=== PATIENT | female | born 1995 | race Two or more races ===

== ENCOUNTER 2016-11-08 17:01 | Emergency (ER) | payer SELFPAY ==
[~2016-11-08] VITALS: Ht 157.5 cm; Wt 75.7 kg
[~2016-11-08 17:01] MED LIST: CIPR500T94 PO
[2016-11-08 18:08] VITALS: BP 109/75
[2016-11-08 18:55] LABS: OBC FLU VALID
[2016-11-08] MEDS ORDERED: AMOX500T PO (19:40)
--- NOTE | 2016-11-08 19:40 | PHYS DOC ---
Past Medical History Past Medical History: No Pertinent History Past Surgical History: Appendectomy, Other Additional Past Surgical Histo: D&C Additional Information: Nonsmoker Alcohol Use: None Drug Use: None Adult General Chief Complaint Chief Complaint: SORE THROAT HPI HPI Patient is a 21 year old female who presents with sore throat for 3 days. She reports subjective fever and nasal congestion as well. She denies cough or shortness of breath. She's had infrequent nausea and vomiting. She reports that she is 11 weeks with estimated due date of 05/17/17. Her OB is Dr. Gay Crowe. She does not have a PCP. Review of Systems Review of Systems Constitutional: The ports subjective fever. Eyes: Denies change in visual acuity, redness, or eye pain. [] HENT: Denies ear pain. Reports sore throat and nasal congestion. Respiratory: Denies cough or shortness of breath. [] Cardiovascular: Denies chest pain, palpitations or edema. [] GI: Denies abdominal pain, bloody stools or diarrhea. Reports occasional nausea and vomiting. : Denies dysuria, hematuria or urinary frequency. [] Musculoskeletal: Denies back pain or joint pain. [] Integument: Denies rash or skin lesions. [] Neurologic: Denies headache, focal weakness or sensory changes. [] Endocrine: Denies polyuria or polydipsia. [] Psych: Denies anxiety or depression. [] All systems reviewed and negative unless otherwise stated in the HPI. Allergies Allergies Allergies Coded Allergies Type Severity Reaction Last Updated Verified No Known Drug Allergies 09/10/13 No Physical Exam Physical Exam Constitutional: Well developed, well nourished, no acute distress, non-toxic appearance. [] HENT: Normocephalic, atraumatic, bilateral external ears normal, oropharynx moist, no oral exudates, nose normal. Bilateral TMs without erythema or bulging. There is posterior pharyngeal erythema with mild tonsillar edema bilaterally. There is no peritonsillar abscess or uvular deviation. Bilateral nasal turbinates are swollen and erythematous. Eyes: PERRLA, EOMI, conjunctiva normal, no discharge. [] Neck: Normal range of motion, no tenderness, supple, no stridor. [] Cardiovascular: Heart rate regular rhythm, no murmur [] Lungs & Thorax: Bilateral breath sounds clear to auscultation without wheezes, rales, or rhonchi. Skin: Warm, dry, no erythema, no rash. [] Neurologic: Alert and oriented X 3, normal motor function, normal sensory function, no focal deficits noted. [] Psychologic: Affect normal, judgement normal, mood normal. [] Current Patient Data Vital Signs Vital Signs Date Time Temp Pulse Resp B/P Pulse Ox O2 Delivery O2 Flow Rate FiO2 11/08/16 18:08 99.2 86 18 99 Room Air 99.2 Lab Values Laboratory Tests Test 11/08/16 18:13 Influenza Type A Antigen Negative (NEGATIVE) Influenza Type B Antigen Negative (NEGATIVE) EKG EKG [] Radiology/Procedures Radiology/Procedures [] Course & Med Decision Making Course & Med Decision Making Pertinent Labs and Imaging studies reviewed. (See chart for details) [] Dragon Disclaimer Dragon Disclaimer This electronic medical record was generated, in whole or in part, using a voice recognition dictation system. Departure Departure Impression: Primary Impression: Pharyngitis Disposition: HOME, SELF-CARE Condition: STABLE Referrals: NO PCP (PCP) Patient Instructions: Viral and Bacterial Pharyngitis, [id number] Additional Instructions: Please complete all the prescribed antibiotics, even if you are feeling better. Please take Tylenol for fever or pain. Use according to package instructions. Please drink lots of water to stay hydrated and get plenty of rest. Please follow-up with your OB doctor within the next week. Return to emergency department if you have any new or concerning symptoms. Scripts Amoxicillin 500 Mg Tablet1 Tab PO BID #20 TAB Prov:LAUREANO MENEZES 11/08/16 Problem Qualifiers Primary Impression: Pharyngitis Pharyngitis/tonsillitis etiology: unspecified etiology Qualified Code: J02.9 - Acute pharyngitis, unspecified LAUREANO MENEZES Nov 08, 2016 19:40
[2016-11-09 07:10] LABS: NEGATIVE OBC STREP NEG; POSITIVE OBC STREP POS
== END 2016-11-08 19:52 | disposition home or self-care (01) ==
LOC: ER 17:01
DX: O99.511 Diseases of the respiratory system complicating pregnancy, first trimester (principal); J02.9 Acute pharyngitis, unspecified
CPT/HCPCS: 87070; 87804; 87880; 99284

== ENCOUNTER 2016-12-17 00:33 | Emergency (ER) | payer SELFPAY ==
[~2016-12-17] VITALS: Ht 157.5 cm; Wt 75.7 kg
[~2016-12-17 00:33] MED LIST changes: +AMOX500T PO
[2016-12-17 01:22] LABS: BILIRUBIN,URINE NEGATIVE (NEG); GLUCOSE,URINE NEGATIVE (NEG); NITRITE,URINE NEGATIVE (NEG); PROTEIN,URINE NEGATIVE (NEG-TRACE); UROBILINOGEN,URINE 0.2 mg/dL (0.2 mg/dL)
[2016-12-17] MEDS ORDERED: ACETAMINOPHEN 500 MG TABLET PO ONE (01:30)
[2016-12-17 01:32] LABS: BACTERIA,URINE MANY /HPF (0-FEW); RBC,URINE 0 /HPF (0-2); SQUAMOUS EPITHELIAL CELL,UR MANY /LPF
[2016-12-17 02:14] LABS: BASO % 0 % (0-3); EOS % 1 % (0-3); HEMATOCRIT 36.5 % (36.0-47.0); HEMOGLOBIN 12.4 g/dL (12.0-15.5); LYMPH # 2.6 x10^3/uL (1.0-4.8); LYMPH % 25 % (24-48); MEAN CORPUSCULAR HEMOGLOBIN 33 pg (25-35); MEAN CORPUSCULAR HGB CONC 34 g/dL (31-37); MEAN CORPUSCULAR VOLUME 96 fL (79-100); MONO % 6 % (0-9); NEUT % 68 % (31-73); PLATELET COUNT 256 x10^3/uL (140-400); RED CELL DISTRIBUTION WIDTH 12.9 % (11.5-14.5); WHITE BLOOD COUNT 10.3 x10^3/uL (4.0-11.0)
--- NOTE | 2016-12-17 02:23 | RAD ---
Ultrasound abdomen limited Indication: Epigastric pain and nausea. The patient is 17 weeks . The liver demonstrates a homogeneous echotexture. No mass is detected. The gallbladder is without stones or sludge. No wall thickening or pericholecystic fluid is detected. No biliary ductal dilatation is seen. The right kidney is unremarkable. The visualized pancreas is unremarkable. There is no ascites. Impression: Unremarkable right upper quadrant ultrasound. Electronically signed by: Joel Travis MD (Dec 17, 2016 02:21:51)
--- NOTE | 2016-12-17 02:33 | RAD ---
Ultrasound more than 14 weeks Indication: Pain. There is a single live fetus approximately 17 weeks 5 days gestational age. The placenta is posterior and fundal. heart rate is recorded at 155 beats per minute. No gross abnormality is detected. No abruption is seen. The ovaries are unremarkable. Biometry measurements: Biparietal diameter 3.8 centimeters, 17 weeks 4 days Head circumference 14.0 centimeters, 17 weeks 2 days Abdominal circumference 12.2 centimeters, 17 weeks 6 days Femur length 2.6 centimeters, 17 weeks 6 days Impression: Single live IUP 17 weeks 5 days gestational age. No complicating features are detected. Electronically signed by: Joel Travis MD (Dec 17, 2016 02:31:35)
[2016-12-17 02:49] VITALS: BP 109/57
[2016-12-17 03:02] LABS: ALBUMIN 3.2 g/dL (3.4-5.0); ALBUMIN/GLOBULIN RATIO 0.8 (1.0-1.7); CALCIUM 8.8 mg/dL (8.5-10.1); CREATININE 0.4 mg/dL (0.6-1.0); GFR 199.6; TOTAL BILIRUBIN 0.3 mg/dL (0.2-1.0); TOTAL PROTEIN 7.4 g/dL (6.4-8.2)
[2016-12-17 03:03] LABS: POTASSIUM 4.2 mmol/L (3.5-5.1)
[2016-12-17] MEDS ORDERED: RANI150T6 PO (03:16)
[2016-12-17] MEDS ORDERED: NITR100C62 PO (03:16)
--- NOTE | 2016-12-17 03:16 | PHYS DOC ---
Past Medical History Past Medical History: No Pertinent History Past Surgical History: Appendectomy, Other Additional Past Surgical Histo: D&C Alcohol Use: None Drug Use: None Adult General Chief Complaint Chief Complaint: ABDOMINAL PAIN IN HPI HPI Patient is a 21 year old female who presents with abdominal pain in . She is at 18 weeks by dates. Reports 1 day history of epigastric & RUQ abdominal pain as well as suprapubic pain, with nausea. Denies fevers/chills, vomiting, diarrhea, dysuria/hematuria, vaginal bleeding/ discharge. Her OB is Dr. Crowe at [facility] & she has been receiving care. She reports history of "gallbladder problems" in her prior . History of appendectomy. Review of Systems Review of Systems Constitutional: Denies fever or chills HENT: Denies nasal congestion or sore throat Respiratory: Denies cough or shortness of breath Cardiovascular: Denies chest pain or edema GI: Reports abdominal pain, nausea, denies vomiting, or diarrhea : Denies dysuria or hematuria , denies vaginal bleeding Musculoskeletal: Denies back pain or joint pain Integument: Denies rash or skin lesions Neurologic: Denies headache Current Medications Current Medications Current Medications Medications (Trade) Dose Ordered Sig/Kiersten Start Time Stop Time Status Last Admin Dose Admin Acetaminophen (Tylenol) 500 mg 1X ONCE 12/17/16 01:30 12/17/16 01:31 DC 12/17/16 02:00 500 MG Allergies Allergies Allergies Coded Allergies Type Severity Reaction Last Updated Verified No Known Drug Allergies 09/10/13 No Physical Exam Physical Exam Constitutional: Well developed, well nourished, no acute distress, non-toxic appearance. HENT: Normocephalic, atraumatic, bilateral external ears normal, oropharynx moist, nose normal. Eyes: conjunctiva normal, no discharge. Cardiovascular: RRR, no murmurs, no edema. Lungs & Thorax: LCTAB, no wheezing, no respiratory distress. Abdomen: Gravid uterus, epigastric and right upper quadrant tenderness with palpation, mild suprapubic tenderness, otherwise nontender, no rebound or guarding, no masses or pulsatile masses Skin: Warm, dry, no erythema, no rash. Back: No CVA tenderness. Extremities: No tenderness, no edema. Neurologic: Alert and oriented X 3, no focal deficits noted. Psychologic: Affect normal, judgement normal, mood normal. Current Patient Data Vital Signs Vital Signs Date Time Temp Pulse Resp B/P Pulse Ox O2 Delivery O2 Flow Rate FiO2 12/17/16 02:49 80 109/57 100 Room Air 12/17/16 00:53 98.2 18 98.2 Lab Values Laboratory Tests Test 12/16/16 23:47 12/17/16 00:38 12/17/16 02:07 POC Urine HCG, Qualitative Hcg positive (Negative) Urine Collection Type Unknown Urine Color Yellow Urine Clarity Cloudy Urine pH 6.0 Urine Specific [place] 1.020 Urine Protein Negativemg/dL (NEG-TRACE) Urine Glucose (UA) Negativemg/dL (NEG) Urine Ketones (Stick) Negativemg/dL (NEG) Urine Blood Negative (NEG) Urine Nitrite Negative (NEG) Urine Bilirubin Negative (NEG) Urine Urobilinogen Dipstick 0.2mg/dL (0.2 mg/dL) Urine Leukocyte Esterase Large (NEG) Urine RBC 0/HPF (0-2) Urine WBC 5-10/HPF (0-4) Urine Squamous Epithelial Cells Many/LPF Urine Bacteria Many/HPF (0-FEW) Urine Mucus Slight/LPF White Blood Count 10.3x10^3/uL (4.0-11.0) Red Blood Count 3.80x10^6/uL (3.50-5.40) Hemoglobin 12.4g/dL (12.0-15.5) Hematocrit 36.5% (36.0-47.0) Mean Corpuscular Volume 96fL (79-100) Mean Corpuscular Hemoglobin 33pg (25-35) Mean Corpuscular Hemoglobin Concent 34g/dL (31-37) Red Cell Distribution Width 12.9% (11.5-14.5) Platelet Count 256x10^3/uL (140-400) Neutrophils (%) (Auto) 68% (31-73) Lymphocytes (%) (Auto) 25% (24-48) Monocytes (%) (Auto) 6% (0-9) Eosinophils (%) (Auto) 1% (0-3) Basophils (%) (Auto) 0% (0-3) Neutrophils # (Auto) 7.0x10^3uL (1.8-7.7) Lymphocytes # (Auto) 2.6x10^3/uL (1.0-4.8) Monocytes # (Auto) 0.6x10^3/uL (0.0-1.1) Eosinophils # (Auto) 0.1x10^3/uL (0.0-0.7) Basophils # (Auto) 0.0x10^3/uL (0.0-0.2) Sodium Level 138mmol/L (136-145) Potassium Level 4.2mmol/L (3.5-5.1) Chloride Level 103mmol/L (98-107) Carbon Dioxide Level 23mmol/L (21-32) Anion Gap 12 (6-14) Blood Urea Nitrogen 8mg/dL (7-20) Creatinine 0.4mg/dL (0.6-1.0) L Estimated GFR (Cockcroft-Gault) 199.6 BUN/Creatinine Ratio 20 (6-20) Glucose Level 89mg/dL (70-99) Calcium Level 8.8mg/dL (8.5-10.1) Total Bilirubin 0.3mg/dL (0.2-1.0) Aspartate Amino Transferase (AST) 23U/L (15-37) Alanine Aminotransferase (ALT) 17U/L (14-59) Alkaline Phosphatase 59U/L (46-116) Total Protein 7.4g/dL (6.4-8.2) Albumin 3.2g/dL (3.4-5.0) L Albumin/Globulin Ratio 0.8 (1.0-1.7) L Lipase 130U/L (73-393) Laboratory Tests 12/17/16 02:07 Laboratory Tests 12/17/16 02:07 EKG EKG [] Radiology/Procedures Radiology/Procedures PROCEDURE: PREG MORE THAN OR EQ TO 14 WKS Ultrasound more than 14 weeks Indication: Pain. There is a single live fetus approximately 17 weeks 5 days gestational age. The placenta is posterior and fundal. heart rate is recorded at 155 beats per minute. No gross abnormality is detected. No abruption is seen. The ovaries are unremarkable. Biometry measurements: Biparietal diameter 3.8 centimeters, 17 weeks 4 days Head circumference 14.0 centimeters, 17 weeks 2 days Abdominal circumference 12.2 centimeters, 17 weeks 6 days Femur length 2.6 centimeters, 17 weeks 6 days Impression: Single live IUP 17 weeks 5 days gestational age. No complicating features are detected. Electronically signed by: Joel Castillo MD (Dec 17, 2016 02:31:35) DICTATED and SIGNED BY: JOEL CASTILLO MD DATE: 12/17/16230 PROCEDURE: ABDOMEN LTD Ultrasound abdomen limited Indication: Epigastric pain and nausea. The patient is 17 weeks . The liver demonstrates a homogeneous echotexture. No mass is detected. The gallbladder is without stones or sludge. No wall thickening or pericholecystic fluid is detected. No biliary ductal dilatation is seen. The right kidney is unremarkable. The visualized pancreas is unremarkable. There is no ascites. Impression: Unremarkable right upper quadrant ultrasound. Electronically signed by: Joel Castillo MD (Dec 17, 2016 02:21:51) DICTATED and SIGNED BY: JOEL CASTILLO MD DATE: 12/17/16220[] Course & Med Decision Making Course & Med Decision Making Pertinent Labs and Imaging studies reviewed. (See chart for details) The patient presents with abdominal pain in . Labs unremarkable, UA shows UTI. US shows no acute process in the gallbladder, IUP with heart tones. Recommend rest, PO hydration, macrobid for UTI, zantac for epigastric pain. Follow up with OB in 2-3 days. Come back for high fever, severe pain, uncontrolled vomiting, any otherwise worsening condition. Discharged home in stable condition. [] Dragon Disclaimer Dragon Disclaimer This electronic medical record was generated, in whole or in part, using a voice recognition dictation system. Departure Departure Impression: Primary Impression: Urinary tract infection Additional Impressions: Abdominal pain related conditions, unspecified, second trimester Disposition: 01 HOME, SELF-CARE Condition: STABLE Referrals: NO PCP (PCP) Patient Instructions: Abdominal Pain During , [id number], - Urinary Tract Infection Additional Instructions: You were seen in the emergency department today for abdominal pain. The ultrasound showed normal gallbladder and healthy baby. Take prescribed antibiotics for urinary tract infection. Use Zantac for upper abdominal pain. Try to avoid spicy foods, coffee, eating late at night. Follow-up with OB in 2- 3 days if symptoms continue. Return to the emergency department for high fever, severe pain, uncontrolled vomiting, any otherwise worsening condition. Scripts Ranitidine Hcl (Zantac)150 Mg [id number] Mg PO DAILY PRN GI SYMPTOMS #30 TAB Prov:MIKI ARIAS MD 12/17/16 Nitrofurantoin Monohyd/M-Cryst (Macrobid 100 Mg Capsule)100 Mg Capsule1 Cap PO BID #14 CAP Prov:MIKI ARIAS MD 12/17/16 Problem Qualifiers MIKI ARIAS MD Dec 17, 2016 03:16
== END 2016-12-17 03:29 | disposition home or self-care (01) ==
LOC: ER 00:33
DX: O23.42 Unspecified infection of urinary tract in pregnancy, second trimester (principal); O26.892 Other specified pregnancy related conditions, second trimester; R10.11 Right upper quadrant pain; R10.13 Epigastric pain; R11.0 Nausea; Z90.49 Acquired absence of other specified parts of digestive tract; Z3A.17 17 weeks gestation of pregnancy
CPT/HCPCS: 36415; 76705; 76805; 80053; 81001; 81025; 83690; 85027; 87086; 99285-25

== ENCOUNTER 2016-12-27 14:49 | Emergency (ER) | payer SELFPAY ==
[~2016-12-27] VITALS: Ht 157.5 cm; Wt 75.7 kg
[~2016-12-27 14:49] MED LIST changes: +NITR100C62 PO; +RANI150T6 PO
--- NOTE | 2016-12-27 15:24 | PHYS DOC ---
Past Medical History Past Medical History: No Pertinent History Past Surgical History: Appendectomy, Other Additional Past Surgical Histo: D&C Alcohol Use: None Drug Use: None Adult General Chief Complaint Chief Complaint: SYNCOPE HPI HPI Patient is a pleasant 21-year-old 011 at approximate 18 weeks by LMP with history of near-syncope while walking in a store with her mom. She denied any chest pain abdominal pain vaginal bleeding or discharge prior to the event she felt a little bit diaphoretic and weak which began to hyperventilate filling her vision, clouded and tunnellike in nature. She sat down really with some results of her symptoms but she still feels very fatigued and anxious. She again denies any shortness of breath or chest pain. Denies any focal neurologic deficits like tingling to her hands feet or face. Her vision is back to normal she has no visual acuity loss no headache no trauma. He still feels the baby moving without issue patient is presently on antimicrobials for UTI. Review of Systems Review of Systems Constitutional: Denies fever or chills [] Eyes: Denies change in visual acuity, redness, or eye pain [] HENT: Denies nasal congestion or sore throat [] Respiratory: Denies cough or shortness of breath [] Cardiovascular: No additional information not addressed in HPI [] GI: Denies abdominal pain, nausea, vomiting, bloody stools or diarrhea [] : Denies dysuria or hematuria [] Musculoskeletal: Denies back pain or joint pain [] Integument: Denies rash or skin lesions [] Neurologic: Denies headache, focal weakness or sensory changes [] Endocrine: Denies polyuria or polydipsia [] Current Medications Current Medications Current Medications Medications (Trade) Dose Ordered Sig/Kiersten Start Time Stop Time Status Last Admin Dose Admin Ondansetron HCl (Zofran) 4 mg 1X ONCE 12/27/16 15:30 12/27/16 15:31 DC Sodium Chloride (Iv Sodium Chloride 0.9% 500ml Bag) 500 ml @ 500 mls/hr Q1H 12/27/16 15:30 12/27/16 15:37 500 MLS/HR Sodium Chloride 10 ml 10 ml QSHIFT PRN 12/27/16 15:30 Allergies Allergies Allergies Coded Allergies Type Severity Reaction Last Updated Verified No Known Drug Allergies 09/10/13 No Physical Exam Physical Exam Constitutional: Well developed, well nourished, no acute distress, non-toxic appearance. [] HENT: Normocephalic, atraumatic, bilateral external ears normal, oropharynx moist, no oral exudates, nose normal. [] Eyes: PERRLA, EOMI, conjunctiva normal, no discharge. [] Neck: Normal range of motion, no tenderness, supple, no stridor. [] Cardiovascular:Heart rate regular rhythm, no murmur [] Lungs & Thorax: Bilateral breath sounds clear to auscultation [] Abdomen: Bowel sounds normal soft nontender gravid uterus at approximately 4-5 cm below the umbilicus. Skin: Warm, dry, no erythema, no rash. [] Back: No tenderness, no CVA tenderness. [] Extremities: No tenderness, no cyanosis, no clubbing, ROM intact, no edema. [] Neurologic: Alert and oriented X 3, normal motor function, normal sensory function, no focal deficits noted. [] Patient has normal sensation Psychologic: Affect normal, judgement normal, mood normal. [] Pelvic exam deferred. Current Patient Data Vital Signs Vital Signs Date Time Temp Pulse Resp B/P Pulse Ox O2 Delivery O2 Flow Rate FiO2 12/27/16 15:00 98.0 85 20 100/55 96 Room Air 98.0 Lab Values Laboratory Tests Test 12/27/16 15:11 12/27/16 15:23 Urine Collection Type Unknown Urine Color Yellow Urine Clarity Cloudy Urine pH 6.5 Urine Specific [place] 1.025 Urine Protein Negativemg/dL (NEG-TRACE) Urine Glucose (UA) Negativemg/dL (NEG) Urine Ketones (Stick) Negativemg/dL (NEG) Urine Blood Negative (NEG) Urine Nitrite Negative (NEG) Urine Bilirubin Negative (NEG) Urine Urobilinogen Dipstick 0.2mg/dL (0.2 mg/dL) Urine Leukocyte Esterase Large (NEG) Urine RBC 0/HPF (0-2) Urine WBC 5-10/HPF (0-4) Urine Squamous Epithelial Cells Many/LPF Urine Bacteria Many/HPF (0-FEW) Urine Mucus Marked/LPF Urine Test Positive (NEG) White Blood Count 9.9x10^3/uL (4.0-11.0) Red Blood Count 3.64x10^6/uL (3.50-5.40) Hemoglobin 12.0g/dL (12.0-15.5) Hematocrit 33.9% (36.0-47.0) L Mean Corpuscular Volume 93fL (79-100) Mean Corpuscular Hemoglobin 33pg (25-35) Mean Corpuscular Hemoglobin Concent 35g/dL (31-37) Red Cell Distribution Width 12.9% (11.5-14.5) Platelet Count 258x10^3/uL (140-400) Neutrophils (%) (Auto) 75% (31-73) H Lymphocytes (%) (Auto) 18% (24-48) L Monocytes (%) (Auto) 6% (0-9) Eosinophils (%) (Auto) 1% (0-3) Basophils (%) (Auto) 1% (0-3) Neutrophils # (Auto) 7.4x10^3uL (1.8-7.7) Lymphocytes # (Auto) 1.7x10^3/uL (1.0-4.8) Monocytes # (Auto) 0.5x10^3/uL (0.0-1.1) Eosinophils # (Auto) 0.1x10^3/uL (0.0-0.7) Basophils # (Auto) 0.1x10^3/uL (0.0-0.2) Sodium Level 134mmol/L (136-145) L Potassium Level 3.7mmol/L (3.5-5.1) Chloride Level 104mmol/L (98-107) Carbon Dioxide Level 22mmol/L (21-32) Anion Gap 8 (6-14) Blood Urea Nitrogen 9mg/dL (7-20) Creatinine 0.5mg/dL (0.6-1.0) L Estimated GFR (Cockcroft-Gault) 154.3 BUN/Creatinine Ratio 18 (6-20) Glucose Level 116mg/dL (70-99) H Calcium Level 8.6mg/dL (8.5-10.1) Total Bilirubin 0.2mg/dL (0.2-1.0) Aspartate Amino Transferase (AST) 14U/L (15-37) L Alanine Aminotransferase (ALT) 15U/L (14-59) Alkaline Phosphatase 56U/L (46-116) Total Protein 7.0g/dL (6.4-8.2) Albumin 2.7g/dL (3.4-5.0) L Albumin/Globulin Ratio 0.6 (1.0-1.7) L Laboratory Tests 12/27/16 15:23 Laboratory Tests 12/27/16 15:23 EKG EKG EKG time 1524 demonstrates heart rate 88 normal QRS, TX intervals normal QTC is similar T-wave changes no S1 every 3 T3. Very normal looking EKG. Date on EKG is 12/27/2016 [] Radiology/Procedures Radiology/Procedures [] Course & Med Decision Making Course & Med Decision Making Pertinent Labs and Imaging studies reviewed. (See chart for details) [Patient presented initially with near syncope. Her confounding factors of the fact she is probably volume depleted and she is approximately 18 weeks. She knew the symptoms are coming on she sat down to react appropriately she denied any chest pain or shortness of breath at this time. I do not believe pulmonary embolism is the cause for symptoms. Patient did not having nausea and vomiting no focal neurologic deficits and did not lose consciousness and had no vision changes. She is Bill back at baseline she was given some fluids and antiemetics here in the emergency department heart tones at bedside were recorded at 148 she still detect movement. Abdomen is soft nontender with normal active bowel sounds are normal gravid uterus] she tolerated by mouth fluid challenge here in the emergency. Her CBC was normal with exception of sodium which is 134. Glucose is mildly elevated at 116. Her BUN/creatinine within normal limits for age. Patient be sent home with Zofran fluid hydration instructions and follow-up with her primary care doctor. Did on her urinalysis that she demonstrated to some red blood cells bacteria but also significant contamination with epithelial cells. She is on antimicrobials. 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 Dragon Disclaimer Dragon Disclaimer This electronic medical record was generated, in whole or in part, using a voice recognition dictation system. Departure Departure Impression: Primary Impression: Near syncope Disposition: 01 HOME, SELF-CARE Condition: IMPROVED Referrals: NO PCP (PCP) Patient Instructions: Dehydration, Adult, Near-Syncope Scripts Ondansetron (Zofran Odt)4 Mg Tab.rapdis1 Tab SL Q8HRS #15 TAB Ref 0 Prov:MIGEL DONAHUE MD 12/27/16 MIGEL DONAHUE MD December 27, 2016 15:24
[2016-12-27] MEDS ORDERED: ONDANSETRON PF 4 MG/2 ML VIAL. IV ONE (15:30)
[2016-12-27] MEDS ORDERED: IV NORMAL SALINE 500ML BAG 500 ML IV SCH (15:30)
[2016-12-27] MEDS ORDERED: 0.9 % SODIUM CHLORIDE 10 ML DISP.SYRIN. IV PRN (15:30)
[2016-12-27 15:35] LABS: BASO # 0.1 x10^3/uL (0.0-0.2); BASO % 1 % (0-3); EOS % 1 % (0-3); HEMATOCRIT 33.9 % (36.0-47.0); LYMPH # 1.7 x10^3/uL (1.0-4.8); LYMPH % 18 % (24-48); MEAN CORPUSCULAR HEMOGLOBIN 33 pg (25-35); MEAN CORPUSCULAR HGB CONC 35 g/dL (31-37); MEAN CORPUSCULAR VOLUME 93 fL (79-100); MONO % 6 % (0-9); NEUT % 75 % (31-73); PLATELET COUNT 258 x10^3/uL (140-400); RED BLOOD COUNT 3.64 x10^6/uL (3.50-5.40); RED CELL DISTRIBUTION WIDTH 12.9 % (11.5-14.5); WHITE BLOOD COUNT 9.9 x10^3/uL (4.0-11.0)
[2016-12-27 15:36] LABS: BILIRUBIN,URINE NEGATIVE (NEG); GLUCOSE,URINE NEGATIVE (NEG); NITRITE,URINE NEGATIVE (NEG); PH,URINE 6.5; PROTEIN,URINE NEGATIVE (NEG-TRACE); UROBILINOGEN,URINE 0.2 mg/dL (0.2 mg/dL)
[2016-12-27 15:41] LABS: NEG OBC UR NEG; POS OBC UR POS
[2016-12-27 15:45] LABS: CALCIUM 8.6 mg/dL (8.5-10.1); CREATININE 0.5 mg/dL (0.6-1.0); GFR 154.3; POTASSIUM 3.7 mmol/L (3.5-5.1)
[2016-12-27 15:51] LABS: ALBUMIN 2.7 g/dL (3.4-5.0); ALBUMIN/GLOBULIN RATIO 0.6 (1.0-1.7); TOTAL BILIRUBIN 0.2 mg/dL (0.2-1.0)
--- NOTE | 2016-12-27 15:51 | EKG ---
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
[2016-12-27 15:53] LABS: BACTERIA,URINE MANY /HPF (0-FEW); RBC,URINE 0 /HPF (0-2); SQUAMOUS EPITHELIAL CELL,UR MANY /LPF
[2016-12-27] MEDS ORDERED: ONDA4TAB10 SL (16:33)
[2016-12-27 17:00] VITALS: BP 104/57
== END 2016-12-27 17:22 | disposition home or self-care (01) ==
LOC: ER 14:49
DX: O26.892 Other specified pregnancy related conditions, second trimester (principal); R55 Syncope and collapse; R06.4 Hyperventilation; Z90.49 Acquired absence of other specified parts of digestive tract; Z3A.18 18 weeks gestation of pregnancy
CPT/HCPCS: 36415; 80053; 81001; 81025; 85027; 87086; 93005; 96360; 96361; 99285; J7040

== ENCOUNTER 2018-01-03 13:47 | Emergency (ER) | payer SELFPAY ==
[2018-01-03 14:08] LABS: URINE HCG POC HCG NEGATIVE (Negative)
[2018-01-03 14:08] LABS: BILIRUBIN,URINE NEGATIVE (NEG); CLARITY,URINE CLEAR; COLOR,URINE YELLOW; GLUCOSE,URINE NEGATIVE (NEG); NITRITE,URINE NEGATIVE (NEG); PH,URINE 5.5; PROTEIN,URINE NEGATIVE (NEG-TRACE); UROBILINOGEN,URINE 0.2 mg/dL (0.2 mg/dL)
[2018-01-03] MEDS: traMADol 50 MG TABLET PO (14:08)
[2018-01-03] MEDS: predniSONE 20 MG TABLET PO (14:08)
[2018-01-03 14:21] LABS: BACTERIA,URINE FEW /HPF (0-FEW); RBC,URINE 0 /HPF (0-2); SQUAMOUS EPITHELIAL CELL,UR MANY /LPF
[2018-01-03] MEDS: diphenhydrAMINE HCL 25 MG CAPSULE PO (14:43)
[2018-01-03] MEDS: KETOROLAC 60 MG/2 ML INJ. IM (14:43)
== END 2018-01-03 15:00 | disposition home or self-care (01) ==
LOC: ER 15:00
DX: J06.9 Acute upper respiratory infection, unspecified (principal); H92.09 Otalgia, unspecified ear
CPT/HCPCS: 81001; 81025; 96372; 99283; J1885; J7512; Q0163

== ENCOUNTER 2018-02-08 12:37 | Emergency (ER) | payer SELFPAY ==
[2018-02-08] MEDS: LIDOCAINE WITH 8.4% SOD BICARB 3 ML DISP.SYRIN. INJ (14:30)
[2018-02-08] MEDS: DIPHTH,PERTUSS(ACELL),TET TOX 0.5 ML DISP.SYRIN. VAX IM (14:39)
== END 2018-02-08 15:08 | disposition home or self-care (01) ==
LOC: ER 15:08
DX: S00.551A Superficial foreign body of lip, initial encounter (principal); X58.XXXA Exposure to other specified factors, initial encounter; Y93.89 Activity, other specified; Y92.89 Other specified places as the place of occurrence of the external cause; Y99.8 Other external cause status
CPT/HCPCS: 10120; 90471; 90715; 99284

== ENCOUNTER 2018-06-20 16:45 | Emergency (ER) | payer SELFPAY ==
[~2018-06-20] VITALS: Ht 157.5 cm; Wt 81.2 kg
[~2018-06-20 16:45] MED LIST changes: +GUAI600T47 PO; +METH4TAB2 PO; +ONDA4TAB10 SL; +RANI150T21 PO; -RANI150T6 PO; +TRAM50TA PO
[2018-06-20 17:28] LABS: BILIRUBIN,URINE NEGATIVE (NEG); CLARITY,URINE CLEAR; COLOR,URINE YELLOW; NITRITE,URINE NEGATIVE (NEG); PROTEIN,URINE NEGATIVE (NEG-TRACE); UROBILINOGEN,URINE 0.2 mg/dL (0.2 mg/dL)
--- NOTE | 2018-06-20 17:29 | PHYS DOC ---
Past Medical History Past Medical History: No Pertinent History Past Surgical History: Appendectomy, Other Additional Past Surgical Histo: D&C Alcohol Use: Occasionally Drug Use: Marijuana Adult General Chief Complaint Chief Complaint: ABDOMINAL PAIN HPI HPI 22-year-old female presents for evaluation of epigastric abdominal pain after eating spicy food. She reports symptoms started approximately 1 hour prior to arrival. She states at time of examination the symptoms are getting better. She reports some nausea as well. States has had similar episodes of pain like this over the last several months. Last menstrual cycle 05/12/18. She denies fevers or vomiting. Review of Systems Review of Systems Constitutional: Denies fever or chills [] Eyes: Denies change in visual acuity, redness, or eye pain [] HENT: Denies nasal congestion or sore throat [] Respiratory: Denies cough or shortness of breath [] Cardiovascular: No additional information not addressed in HPI [] : Denies dysuria or hematuria [] Musculoskeletal: Denies back pain or joint pain [] Integument: Denies rash or skin lesions [] Neurologic: Denies headache, focal weakness or sensory changes [] All other systems were reviewed and found to be within normal limits, except as documented in this note. Current Medications Current Medications Current Medications Medications (Trade) Dose Ordered Sig/Kiersten Start Time Stop Time Status Last Admin Dose Admin Dicyclomine HCl (Bentyl) 10 mg 1X ONCE 06/20/18 17:30 06/20/18 17:31 DC 06/20/18 18:14 10 MG Allergies Allergies Allergies Coded Allergies Type Severity Reaction Last Updated Verified No Known Drug Allergies 09/10/13 No Physical Exam Physical Exam Constitutional: Well developed, well nourished, no acute distress, non-toxic appearance. [] Cardiovascular:Heart rate regular rhythm, no murmur [] Lungs & Thorax: Bilateral breath sounds clear to auscultation [] Abdomen: Bowel sounds normal, soft, SLIGHT TTP EPIGASTRIC ABD, no masses, no pulsatile masses. [] Skin: Warm, dry, no erythema, no rash. [] Extremities: No tenderness, no cyanosis, no clubbing, ROM intact, no edema. [] Neurologic: Alert and oriented X 3, normal motor function, normal sensory function, no focal deficits noted. [] Psychologic: Affect normal, judgement normal, mood normal. [] Current Patient Data Vital Signs Vital Signs Date Time Temp Pulse Resp B/P (MAP) Pulse Ox O2 Delivery O2 Flow Rate FiO2 06/20/18 18:45 77 18 113/80 (91) 98 Room Air 06/20/18 16:58 98.1 98.1 Lab Values Laboratory Tests Test 06/20/18 17:08 06/20/18 17:15 06/20/18 17:25 POC Urine HCG, Qualitative Hcg negative (Negative) Urine Collection Type Unknown Urine Color Yellow Urine Clarity Clear Urine pH 8.0 Urine Specific [place] 1.025 Urine Protein Negative mg/dL (NEG-TRACE) Urine Glucose (UA) Negative mg/dL (NEG) Urine Ketones (Stick) Negative mg/dL (NEG) Urine Blood Negative (NEG) Urine Nitrite Negative (NEG) Urine Bilirubin Negative (NEG) Urine Urobilinogen Dipstick 0.2 mg/dL (0.2 mg/dL) Urine Leukocyte Esterase Negative (NEG) Urine RBC Occ /HPF (0-2) Urine WBC Occ /HPF (0-4) Urine Squamous Epithelial Cells Mod /LPF Urine Amorphous Sediment Present /HPF Urine Bacteria 0 /HPF (0-FEW) Urine Mucus Slight /LPF White Blood Count 7.5 x10^3/uL (4.0-11.0) Red Blood Count 4.11 x10^6/uL (3.50-5.40) Hemoglobin 13.6 g/dL (12.0-15.5) Hematocrit 38.6 % (36.0-47.0) Mean Corpuscular Volume 94 fL (79-100) Mean Corpuscular Hemoglobin 33 pg (25-35) Mean Corpuscular Hemoglobin Concent 35 g/dL (31-37) Red Cell Distribution Width 12.6 % (11.5-14.5) Platelet Count 281 x10^3/uL (140-400) Neutrophils (%) (Auto) 57 % (31-73) Lymphocytes (%) (Auto) 34 % (24-48) Monocytes (%) (Auto) 6 % (0-9) Eosinophils (%) (Auto) 2 % (0-3) Basophils (%) (Auto) 1 % (0-3) Neutrophils # (Auto) 4.3 x10^3uL (1.8-7.7) Lymphocytes # (Auto) 2.6 x10^3/uL (1.0-4.8) Monocytes # (Auto) 0.5 x10^3/uL (0.0-1.1) Eosinophils # (Auto) 0.1 x10^3/uL (0.0-0.7) Basophils # (Auto) 0.1 x10^3/uL (0.0-0.2) Sodium Level 141 mmol/L (136-145) Potassium Level 3.5 mmol/L (3.5-5.1) Chloride Level 105 mmol/L (98-107) Carbon Dioxide Level 26 mmol/L (21-32) Anion Gap 10 (6-14) Blood Urea Nitrogen 13 mg/dL (7-20) Creatinine 0.6 mg/dL (0.6-1.0) Estimated GFR (Cockcroft-Gault) 123.9 BUN/Creatinine Ratio 22 (6-20) H Glucose Level 104 mg/dL (70-99) H Calcium Level 8.6 mg/dL (8.5-10.1) Total Bilirubin 0.2 mg/dL (0.2-1.0) Aspartate Amino Transferase (AST) 20 U/L (15-37) Alanine Aminotransferase (ALT) 27 U/L (14-59) Alkaline Phosphatase 81 U/L (46-116) Total Protein 7.5 g/dL (6.4-8.2) Albumin 3.6 g/dL (3.4-5.0) Albumin/Globulin Ratio 0.9 (1.0-1.7) L Lipase 160 U/L (73-393) Laboratory Tests 06/20/18 17:25 Laboratory Tests 06/20/18 17:25 EKG EKG [] Radiology/Procedures Radiology/Procedures [PROCEDURE: ABDOMEN LTD Examination: Ultrasound abdomen limited HISTORY: History of upper abdominal pain, nausea COMPARISON: 12/17/2016 FINDINGS: The pancreas is not well-visualized due to bowel gas. The liver measures 15.6 cm. The right kidney measures 12.6 cm in length. Multiple echogenicities identified within the gallbladder likely tiny gallstones or sludge. The gallbladder wall thickness measures 3.6 mm. No ultrasonographic evidence of Seo's sign. The common bile duct measures 3.3 mm in diameter. IMPRESSION: 1. Cholelithiasis or sludge with mild thickened appearance of the gallbladder wall. Acute cholecystitis is not completely excluded. Correlate clinically. Electronically signed by: Keith Hillman MD (06/20/2018 6:24 PM) [facility] ] Course & Med Decision Making Course & Med Decision Making Pertinent Labs and Imaging studies reviewed. (See chart for details) [Vital signs stable, patient is afebrile and nontoxic in appearance. Labs are within normal limits. Ultrasound abdomen limited indicates cholelithiasis. Patient is referred for outpatient follow-up with general surgery. Discussed findings with patient, discussed dietary changes to limit abdominal pain. Patient is given prescription for Bentyl and follow-up information for general surgery. Stable for discharge home. Strict return precautions discussed.] Dragon Disclaimer Dragon Disclaimer This electronic medical record was generated, in whole or in part, using a voice recognition dictation system. Departure Departure Impression: Primary Impression: Cholelithiasis Disposition: 01 HOME, SELF-CARE Condition: STABLE Referrals: NO PCP (PCP) DELFINO PAUL MD Scripts Dicyclomine Hcl (DICYCLOMINE HCL) 20 Mg Tablet 1 TAB PO TID PRN for PAIN, #30 TAB 1 Refill Prov: SUNG HELTON APRN 06/20/18 SUNG HELTON APRN Jun 20, 2018 17:29
[2018-06-20] MEDS ORDERED: DICYCLOMINE 20 MG/2 ML AMPUL. IM ONE (17:30)
[2018-06-20 17:36] LABS: AMORPHOUS SEDIMENT,UR PRESENT /HPF; BACTERIA,URINE 0 /HPF (0-FEW); RBC,URINE OCC /HPF (0-2); SQUAMOUS EPITHELIAL CELL,UR MOD /LPF; WBC,URINE OCC /HPF (0-4)
[2018-06-20 17:39] LABS: BASO # 0.1 x10^3/uL (0.0-0.2); BASO % 1 % (0-3); EOS # 0.1 x10^3/uL (0.0-0.7); EOS % 2 % (0-3); HEMATOCRIT 38.6 % (36.0-47.0); HEMOGLOBIN 13.6 g/dL (12.0-15.5); LYMPH # 2.6 x10^3/uL (1.0-4.8); LYMPH % 34 % (24-48); MEAN CORPUSCULAR HEMOGLOBIN 33 pg (25-35); MEAN CORPUSCULAR HGB CONC 35 g/dL (31-37); MEAN CORPUSCULAR VOLUME 94 fL (79-100); MONO # 0.5 x10^3/uL (0.0-1.1); MONO % 6 % (0-9); NEUT # 4.3 x10^3uL (1.8-7.7); NEUT % 57 % (31-73); PLATELET COUNT 281 x10^3/uL (140-400); RED BLOOD COUNT 4.11 x10^6/uL (3.50-5.40); RED CELL DISTRIBUTION WIDTH 12.6 % (11.5-14.5); WHITE BLOOD COUNT 7.5 x10^3/uL (4.0-11.0)
[2018-06-20 17:56] LABS: CALCIUM 8.6 mg/dL (8.5-10.1); CREATININE 0.6 mg/dL (0.6-1.0); GFR 123.9; POTASSIUM 3.5 mmol/L (3.5-5.1)
[2018-06-20 18:00] LABS: ALBUMIN 3.6 g/dL (3.4-5.0); ALBUMIN/GLOBULIN RATIO 0.9 (1.0-1.7); TOTAL BILIRUBIN 0.2 mg/dL (0.2-1.0); TOTAL PROTEIN 7.5 g/dL (6.4-8.2)
--- NOTE | 2018-06-20 18:27 | RAD ---
Examination: Ultrasound abdomen limited HISTORY: History of upper abdominal pain, nausea COMPARISON: 12/17/2016 FINDINGS: The pancreas is not well-visualized due to bowel gas. The liver measures 15.6 cm. The right kidney measures 12.6 cm in length. Multiple echogenicities identified within the gallbladder likely tiny gallstones or sludge. The gallbladder wall thickness measures 3.6 mm. No ultrasonographic evidence of Seo's sign. The common bile duct measures 3.3 mm in diameter. IMPRESSION: 1. Cholelithiasis or sludge with mild thickened appearance of the gallbladder wall. Acute cholecystitis is not completely excluded. Correlate clinically. Electronically signed by: Keith iHllman MD (06/20/2018 6:24 PM) [facility]
[2018-06-20] MEDS ORDERED: DICY20TA3 PO (18:42)
[2018-06-20 18:45] VITALS: BP 113/80
== END 2018-06-20 18:45 | disposition home or self-care (01) ==
LOC: ER 16:45
DX: K80.20 Calculus of gallbladder without cholecystitis without obstruction (principal); Z90.89 Acquired absence of other organs
CPT/HCPCS: 36415; 76705; 80053; 81001; 81025; 83690; 85025; 96372; 99285; J0500

== ENCOUNTER 2018-07-11 23:36 | Emergency (ER) | payer SELFPAY ==
[~2018-07-11] VITALS: Ht 157.5 cm; Wt 77.1 kg
[~2018-07-11 23:36] MED LIST changes: +DICY20TA3 PO
[2018-07-12] MEDS ORDERED: ONDANSETRON ODT 4 MG TAB.RAPDIS. PO ONE (00:45)
[2018-07-12] MEDS ORDERED: LIDO:MAALOX 1:1 20 ML SINGLE DOSE. SWSW ONE (00:45)
[2018-07-12] MEDS ORDERED: fentaNYL PF VIAL 100 MCG/2 ML VIAL ONE (01:19)
[2018-07-12 01:21] LABS: BASO # 0.1 x10^3/uL (0.0-0.2); BASO % 1 % (0-3); EOS # 0.1 x10^3/uL (0.0-0.7); EOS % 2 % (0-3); HEMATOCRIT 40.9 % (36.0-47.0); LYMPH # 3.5 x10^3/uL (1.0-4.8); LYMPH % 39 % (24-48); MEAN CORPUSCULAR HEMOGLOBIN 33 pg (25-35); MEAN CORPUSCULAR HGB CONC 34 g/dL (31-37); MEAN CORPUSCULAR VOLUME 95 fL (79-100); MONO # 0.4 x10^3/uL (0.0-1.1); MONO % 5 % (0-9); NEUT % 55 % (31-73); PLATELET COUNT 291 x10^3/uL (140-400); RED CELL DISTRIBUTION WIDTH 12.4 % (11.5-14.5); WHITE BLOOD COUNT 9.1 x10^3/uL (4.0-11.0)
[2018-07-12 01:29] LABS: CALCIUM 9.3 mg/dL (8.5-10.1); CREATININE 0.6 mg/dL (0.6-1.0); GFR 123.9; POTASSIUM 3.8 mmol/L (3.5-5.1)
[2018-07-12] MEDS ORDERED: ONDANSETRON PF 4 MG/2 ML VIAL. IV ONE (01:30)
[2018-07-12] MEDS ORDERED: fentaNYL PF VIAL 100 MCG/2 ML VIAL IV ONE (01:30)
[2018-07-12 01:34] LABS: ALBUMIN 4.2 g/dL (3.4-5.0); TOTAL BILIRUBIN 0.4 mg/dL (0.2-1.0); TOTAL PROTEIN 8.3 g/dL (6.4-8.2)
[2018-07-12] MEDS ORDERED: MORPHINE SULFATE 4 MG/ML VIAL. IV ONE (01:45)
[2018-07-12 02:00] VITALS: BP 106/53
--- NOTE | 2018-07-12 02:00 | RAD ---
INDICATION : abd pain/nausea x 24 hrs COMPARISON: June 20, 2018 TECHNIQUE: Multiple ultrasound images obtained through the abdomen in grayscale and color. FINDINGS: Liver: Echotexture within normal limits in visualized portions of liver. Gallbladder: Gallstones are visualized. Gallbladder somewhat distended at time of exam. 111 x 32 mm. Portion of gallbladder wall measures up to about 4 mm. IVC: Partially distended at level of liver. Common Bile Duct: 4-5 mm Pancreas: Poorly seen but no fluid collection adjacent to the partially seen portion. Right Kidney: No hydronephrosis. IMPRESSION: 1. Multiple gallstones are visualized with distention of the gallbladder. The patient has pain within the region. Given the presence of gallstones and pain in the area gallbladder disease such as cholecystitis is not excluded on this exam and if further clarification is desired a follow-up nuclear hepatobiliary scan could further evaluate. Electronically signed by: Hari Almanzar MD (07/12/2018 1:55 AM) [facility]
[2018-07-12] MEDS ORDERED: HYDR-3135 PO (03:03)
[2018-07-12] MEDS ORDERED: ONDA4TAB7 PO (03:03)
--- NOTE | 2018-07-12 03:14 | PHYS DOC ---
Past Medical History Past Medical History: Gallstones, Kidney Infection Past Surgical History: Appendectomy Additional Past Surgical Histo: d & C Alcohol Use: None Drug Use: None Adult General Chief Complaint Chief Complaint: ABDOMINAL PAIN HPI HPI Patient is a 22 year old female with history of biliary colic presents with intermittent right upper quadrant pain radiating to right scapula of the past to 3 months. Symptom this evening began after eating spaghetti. Patient reports nausea without vomiting. No fever chills, sweats. No midabdominal pain. No hematemesis, coffee-ground emesis, melena or hematochezia. No other symptoms or complaints. Pain is similar in nature quality and character as previous episodes. Patient was evaluated in this emergency department approximately one month ago for the same. She was diagnosed with biliary colic and was instructed to follow-up general surgery.[] Review of Systems Review of Systems ROS as per HPI All other systems were reviewed and found to be within normal limits, except as documented in this note. Current Medications Current Medications Current Medications Medications (Trade) Dose Ordered Sig/Kiersten Start Time Stop Time Status Last Admin Dose Admin Fentanyl Citrate (Fentanyl 2ml Vial) 100 mcg STK-MED ONCE 07/12/18 01:19 07/12/18 01:20 DC Morphine Sulfate (Morphine Sulfate) 4 mg 1X ONCE 07/12/18 01:45 07/12/18 01:50 DC 07/12/18 01:43 4 MG Multi-Ingredient Mouthwash/Gargle (Gi Cocktail) 20 ml 1X ONCE 07/12/18 00:45 07/12/18 00:46 DC 07/12/18 00:47 20 ML Ondansetron HCl (Zofran Odt) 4 mg 1X ONCE 07/12/18 00:45 07/12/18 00:46 DC 07/12/18 00:47 4 MG Ondansetron HCl (Zofran) 4 mg 1X ONCE 07/12/18 01:30 07/12/18 01:31 DC 07/12/18 01:22 4 MG Allergies Allergies Allergies Coded Allergies Type Severity Reaction Last Updated Verified vancomycin Allergy Severe Itching 07/12/18 Yes Physical Exam Physical Exam Constitutional: Well developed, well nourished, no acute distress, non-toxic appearance. [] HENT: Normocephalic, atraumatic, bilateral external ears normal, oropharynx moist, no oral exudates, nose normal. [] Eyes: PERRLA, EOMI, conjunctiva normal, no discharge. [] Neck: Normal range of motion, no tenderness. [] Cardiovascular:Heart rate regular rhythm, no murmur [] Lungs & Thorax: Bilateral breath sounds clear to auscultation [] Abdomen: Bowel sounds normal, soft, per quadrant pain, tenderness, positive Seo sign. [] Skin: Warm, dry, no erythema, no rash. [] Back: No tenderness, no CVA tenderness. [] Extremities: No tenderness, no edema. [] Neurologic: Alert and oriented X 3, normal motor function, normal sensory function, no focal deficits noted. [] Psychologic: Affect normal, judgement normal, mood normal. [] Current Patient Data Vital Signs Vital Signs Date Time Temp Pulse Resp B/P (MAP) Pulse Ox O2 Delivery O2 Flow Rate FiO2 07/12/18 02:10 18 97 07/12/18 02:00 62 106/53 (70) Room Air 07/11/18 23:56 98.8 98.8 Lab Values Laboratory Tests Test 07/12/18 00:05 07/12/18 00:13 POC Urine HCG, Qualitative Hcg negative (Negative) White Blood Count 9.1 x10^3/uL (4.0-11.0) Red Blood Count 4.30 x10^6/uL (3.50-5.40) Hemoglobin 14.0 g/dL (12.0-15.5) Hematocrit 40.9 % (36.0-47.0) Mean Corpuscular Volume 95 fL (79-100) Mean Corpuscular Hemoglobin 33 pg (25-35) Mean Corpuscular Hemoglobin Concent 34 g/dL (31-37) Red Cell Distribution Width 12.4 % (11.5-14.5) Platelet Count 291 x10^3/uL (140-400) Neutrophils (%) (Auto) 55 % (31-73) Lymphocytes (%) (Auto) 39 % (24-48) Monocytes (%) (Auto) 5 % (0-9) Eosinophils (%) (Auto) 2 % (0-3) Basophils (%) (Auto) 1 % (0-3) Neutrophils # (Auto) 5.0 x10^3uL (1.8-7.7) Lymphocytes # (Auto) 3.5 x10^3/uL (1.0-4.8) Monocytes # (Auto) 0.4 x10^3/uL (0.0-1.1) Eosinophils # (Auto) 0.1 x10^3/uL (0.0-0.7) Basophils # (Auto) 0.1 x10^3/uL (0.0-0.2) Sodium Level 137 mmol/L (136-145) Potassium Level 3.8 mmol/L (3.5-5.1) Chloride Level 100 mmol/L (98-107) Carbon Dioxide Level 29 mmol/L (21-32) Anion Gap 8 (6-14) Blood Urea Nitrogen 9 mg/dL (7-20) Creatinine 0.6 mg/dL (0.6-1.0) Estimated GFR (Cockcroft-Gault) 123.9 BUN/Creatinine Ratio 15 (6-20) Glucose Level 89 mg/dL (70-99) Calcium Level 9.3 mg/dL (8.5-10.1) Total Bilirubin 0.4 mg/dL (0.2-1.0) Aspartate Amino Transferase (AST) 19 U/L (15-37) Alanine Aminotransferase (ALT) 18 U/L (14-59) Alkaline Phosphatase 77 U/L (46-116) Total Protein 8.3 g/dL (6.4-8.2) H Albumin 4.2 g/dL (3.4-5.0) Albumin/Globulin Ratio 1.0 (1.0-1.7) Lipase 109 U/L (73-393) Laboratory Tests 07/12/18 00:13 Laboratory Tests 07/12/18 00:13 EKG EKG [] Radiology/Procedures Radiology/Procedures [Gallbladder ultrasound, distended gallbladder with gallstones.] Course & Med Decision Making Course & Med Decision Making Pertinent Labs and Imaging studies reviewed. (See chart for details) [Biliary Colic. Patient's afebrile, symptoms improved with treatment. Lab work normal. Gallbladder ultrasound equivocal. Patient may benefit from outpatient HIDA scan. Patient feeling comfortable we'll discharge home with PCP follow-up. Return precautions reviewed.] Dragon Disclaimer Dragon Disclaimer This electronic medical record was generated, in whole or in part, using a voice recognition dictation system. Departure Departure Impression: Primary Impression: Biliary colic Disposition: HOME, SELF-CARE Condition: GOOD Patient Instructions: Biliary Colic Additional Instructions: Please avoid fatty and starchy foods. Take hydrocodone and nausea medication as needed. Follow up your with local primary care physician for general surgical referral. Return to the ED if new or worsening symptoms Scripts Ondansetron Hcl (ZOFRAN) 4 Mg Tablet 1 TAB PO Q6HRS, #10 TAB 0 Refills Prov: LEON SMITH DO 07/12/18 Hydrocodone/Apap 10-325 (NORCO 10-325 TABLET) 1 Each Tablet 1 TAB PO Q8HRS PRN for PAIN MDD 6, #10 TAB 0 Refills Prov: LEON SMITH DO 07/12/18 LEON SMITH DO Jul 12, 2018 03:14
== END 2018-07-12 03:15 | disposition home or self-care (01) ==
LOC: ER 23:36
DX: K80.50 Calculus of bile duct without cholangitis or cholecystitis without obstruction (principal); Z87.442 Personal history of urinary calculi; Z90.89 Acquired absence of other organs; Z88.1 Allergy status to other antibiotic agents; Z98.890 Other specified postprocedural states
CPT/HCPCS: 36415; 76705; 80053; 81025; 83690; 85025; 96374; 96375; 99285; J2270; J2405; J3010; Q0162

== ENCOUNTER 2019-01-31 01:19 | Emergency (ER) | payer BC ==
[~2019-01-31] VITALS: Ht 157.5 cm; Wt 69.9 kg
[~2019-01-31 01:19] MED LIST changes: -PHEN-318 PO; -SINCALIDE 1.4 MCG in IV NORMAL SALINE 50ML 30 ML IV ONE
[2019-01-31 02:29] LABS: BASO % 1 % (0-3); EOS # 0.1 x10^3/uL (0.0-0.7); EOS % 1 % (0-3); HEMATOCRIT 39.3 % (36.0-47.0); HEMOGLOBIN 13.4 g/dL (12.0-15.5); LYMPH # 3.1 x10^3/uL (1.0-4.8); LYMPH % 33 % (24-48); MEAN CORPUSCULAR HEMOGLOBIN 32 pg (25-35); MEAN CORPUSCULAR HGB CONC 34 g/dL (31-37); MEAN CORPUSCULAR VOLUME 94 fL (79-100); MONO # 0.6 x10^3/uL (0.0-1.1); MONO % 6 % (0-9); NEUT # 5.7 x10^3uL (1.8-7.7); NEUT % 59 % (31-73); PLATELET COUNT 303 x10^3/uL (140-400); RED BLOOD COUNT 4.19 x10^6/uL (3.50-5.40); RED CELL DISTRIBUTION WIDTH 12.1 % (11.5-14.5); WHITE BLOOD COUNT 9.6 x10^3/uL (4.0-11.0)
[2019-01-31] MEDS ORDERED: IV NORMAL SALINE 1000ML BAG 1,000 ML IV ONE (02:30)
[2019-01-31 02:32] LABS: BILIRUBIN,URINE NEGATIVE (NEG); CLARITY,URINE CLEAR; COLOR,URINE YELLOW; NITRITE,URINE NEGATIVE (NEG); PH,URINE 7.5; PROTEIN,URINE NEGATIVE (NEG-TRACE); UROBILINOGEN,URINE 0.2 mg/dL (0.2 mg/dL)
[2019-01-31 02:57] LABS: BACTERIA,URINE MANY /HPF (0-FEW); RBC,URINE OCC /HPF (0-2); WBC,URINE OCC /HPF (0-4)
[2019-01-31 02:57] LABS: CALCIUM 9.2 mg/dL (8.5-10.1); CREATININE 0.8 mg/dL (0.6-1.0); GFR 88.1; POTASSIUM 3.6 mmol/L (3.5-5.1)
[2019-01-31 02:58] LABS: SQUAMOUS EPITHELIAL CELL,UR MOD /LPF
[2019-01-31 03:07] LABS: ALBUMIN 3.9 g/dL (3.4-5.0); ALBUMIN/GLOBULIN RATIO 0.9 (1.0-1.7); TOTAL BILIRUBIN 0.2 mg/dL (0.2-1.0); TOTAL PROTEIN 8.2 g/dL (6.4-8.2)
[2019-01-31] MEDS ORDERED: PHEN-318 PO (03:30)
[2019-01-31] MEDS ORDERED: CIPR500T94 PO (03:30)
--- NOTE | 2019-01-31 03:30 | PHYS DOC ---
Past Medical History Past Medical History: Gallstones, Kidney Stone Past Surgical History: Appendectomy Additional Past Surgical Histo: DNC, Alcohol Use: Occasionally Drug Use: None Adult General Chief Complaint Chief Complaint: ABDOMINAL PAIN HPI HPI 43-year-old female presents several day history of abdominal pain. She states a few days ago it started in her upper quadrant consistent with her previous gallbladder issues. More recently it's been in her lower abdomen. She feels a pressure with some urinary frequency. She denies any fever chills or sweats. She's not had any nausea vomiting or back pain.[] Review of Systems Review of Systems Constitutional: Denies fever or chills [] Eyes: Denies change in visual acuity, redness, or eye pain [] HENT: Denies nasal congestion or sore throat [] Respiratory: Denies cough or shortness of breath [] Cardiovascular: No additional information not addressed in HPI [] GI: Per history of present illness[] : Denies dysuria or hematuria [] Musculoskeletal: Denies back pain or joint pain [] Integument: Denies rash or skin lesions [] Neurologic: Denies headache, focal weakness or sensory changes [] Endocrine: Denies polyuria or polydipsia [] All other systems were reviewed and found to be within normal limits, except as documented in this note. Current Medications Current Medications Current Medications Medications (Trade) Dose Ordered Sig/Kiersten Start Time Stop Time Status Last Admin Dose Admin Sodium Chloride 1,000 ml @ 1,000 mls/hr 1X ONCE 01/31/19 02:30 01/31/19 03:29 01/31/19 02:30 1,000 MLS/HR Allergies Allergies Allergies Coded Allergies Type Severity Reaction Last Updated Verified vancomycin Allergy Severe Itching 07/12/18 Yes Physical Exam Physical Exam Constitutional: Well developed, well nourished, no acute distress, non-toxic appearance. [] HENT: Normocephalic, atraumatic, bilateral external ears normal, oropharynx moist, no oral exudates, nose normal. [] Eyes: PERRLA, EOMI, conjunctiva normal, no discharge. [] Neck: Normal range of motion, no tenderness, supple, no stridor. [] Cardiovascular:Heart rate regular rhythm, no murmur [] Lungs & Thorax: Bilateral breath sounds clear to auscultation [] Abdomen: Bowel sounds normal, soft, no tenderness, no masses, no pulsatile masses. [] Skin: Warm, dry, no erythema, no rash. [] Back: No tenderness, no CVA tenderness. [] Extremities: No tenderness, no cyanosis, no clubbing, ROM intact, no edema. [] Neurologic: Alert and oriented X 3, normal motor function, normal sensory function, no focal deficits noted. [] Psychologic: Affect normal, judgement normal, mood normal. [] Current Patient Data Vital Signs Vital Signs Date Time Temp Pulse Resp B/P (MAP) Pulse Ox O2 Delivery O2 Flow Rate FiO2 01/31/19 01:45 97.5 83 16 114/72 (86) 99 Room Air 97.5 Lab Values Laboratory Tests Test 01/31/19 01:40 01/31/19 01:44 01/31/19 02:10 Urine Collection Type Unknown Urine Color Yellow Urine Clarity Clear Urine pH 7.5 Urine Specific [place] 1.020 Urine Protein Negative mg/dL (NEG-TRACE) Urine Glucose (UA) Negative mg/dL (NEG) Urine Ketones (Stick) Negative mg/dL (NEG) Urine Blood Negative (NEG) Urine Nitrite Negative (NEG) Urine Bilirubin Negative (NEG) Urine Urobilinogen Dipstick 0.2 mg/dL (0.2 mg/dL) Urine Leukocyte Esterase Negative (NEG) Urine RBC Occ /HPF (0-2) Urine WBC Occ /HPF (0-4) Urine Squamous Epithelial Cells Mod /LPF Urine Bacteria Many /HPF (0-FEW) Urine Mucus Slight /LPF POC Urine HCG, Qualitative Hcg negative (Negative) White Blood Count 9.6 x10^3/uL (4.0-11.0) Red Blood Count 4.19 x10^6/uL (3.50-5.40) Hemoglobin 13.4 g/dL (12.0-15.5) Hematocrit 39.3 % (36.0-47.0) Mean Corpuscular Volume 94 fL (79-100) Mean Corpuscular Hemoglobin 32 pg (25-35) Mean Corpuscular Hemoglobin Concent 34 g/dL (31-37) Red Cell Distribution Width 12.1 % (11.5-14.5) Platelet Count 303 x10^3/uL (140-400) Neutrophils (%) (Auto) 59 % (31-73) Lymphocytes (%) (Auto) 33 % (24-48) Monocytes (%) (Auto) 6 % (0-9) Eosinophils (%) (Auto) 1 % (0-3) Basophils (%) (Auto) 1 % (0-3) Neutrophils # (Auto) 5.7 x10^3uL (1.8-7.7) Lymphocytes # (Auto) 3.1 x10^3/uL (1.0-4.8) Monocytes # (Auto) 0.6 x10^3/uL (0.0-1.1) Eosinophils # (Auto) 0.1 x10^3/uL (0.0-0.7) Basophils # (Auto) 0.0 x10^3/uL (0.0-0.2) Sodium Level 138 mmol/L (136-145) Potassium Level 3.6 mmol/L (3.5-5.1) Chloride Level 101 mmol/L (98-107) Carbon Dioxide Level 29 mmol/L (21-32) Anion Gap 8 (6-14) Blood Urea Nitrogen 16 mg/dL (7-20) Creatinine 0.8 mg/dL (0.6-1.0) Estimated GFR (Cockcroft-Gault) 88.1 BUN/Creatinine Ratio 20 (6-20) Glucose Level 95 mg/dL (70-99) Calcium Level 9.2 mg/dL (8.5-10.1) Total Bilirubin 0.2 mg/dL (0.2-1.0) Aspartate Amino Transferase (AST) 17 U/L (15-37) Alanine Aminotransferase (ALT) 18 U/L (14-59) Alkaline Phosphatase 67 U/L (46-116) Total Protein 8.2 g/dL (6.4-8.2) Albumin 3.9 g/dL (3.4-5.0) Albumin/Globulin Ratio 0.9 (1.0-1.7) L Lipase 134 U/L (73-393) Laboratory Tests 01/31/19 02:10 Laboratory Tests 01/31/19 02:10 EKG EKG [] Radiology/Procedures Radiology/Procedures [] Course & Med Decision Making Course & Med Decision Making Pertinent Labs and Imaging studies reviewed. (See chart for details) [ED course: Evaluation reveals 23-year-old female with benign abdominal exam. Her urine does show evidence of bacteria and with her symptoms are gone ahead and treat her for 3 days. I doubt this is related to her gallbladder issues therefore I do not believe she needed to be imaged today.] Sarah Disclaimer Dragon Disclaimer This electronic medical record was generated, in whole or in part, using a voice recognition dictation system. Departure Departure Impression: Primary Impression: Abdominal pain Additional Impression: Urinary tract infection Disposition: HOME, SELF-CARE Condition: STABLE Referrals: TEJAS SANTIAGO MD (PCP) Patient Instructions: Urinary Tract Infection Additional Instructions: Return to the emergency department with any new or concerning symptoms Scripts Phenazopyridine Hcl (PYRIDIUM) 200 Mg Tablet 200 MG PO Q8HRS PRN for DYSURIA, #10 TAB Prov: TREY MARIE DO 01/31/19 Ciprofloxacin Hcl (CIPRO) 500 Mg Tablet 1 TAB PO BID PRN for UTI, #6 TAB Prov: TREY MARIE DO 01/31/19 Problem Qualifiers Primary Impression: Abdominal pain Abdominal location: lower abdomen, unspecified Qualified Codes: R10.30 - Lower abdominal pain, unspecified Additional Impression: Urinary tract infection Urinary tract infection type: site unspecified Hematuria presence: without hematuria Qualified Codes: N39.0 - Urinary tract infection, site not specified TREY MARIE DO Jan 31, 2019 03:30
[2019-01-31 03:39] VITALS: BP 126/60
== END 2019-01-31 03:40 | disposition home or self-care (01) ==
LOC: ER 01:19
DX: N39.0 Urinary tract infection, site not specified (principal); Z88.1 Allergy status to other antibiotic agents
CPT/HCPCS: 36415; 80053; 81001; 81025; 83690; 85025; 87086; 99284; J7030

== ENCOUNTER → 2019-01-31 | Outpatient (CLI) | payer BC ==
[~2019-01-31] VITALS: Ht 157.5 cm; Wt 69.9 kg
[~2019-01-31] MED LIST changes: +HYDR-3135 PO; +ONDA4TAB7 PO; +PHEN-318 PO; +RANI-376 PO; -RANI150T21 PO; +SINCALIDE 1.4 MCG in IV NORMAL SALINE 50ML 30 ML IV ONE
[2019-01-31 03:39] VITALS: BP 126/60
--- NOTE | 2019-01-31 08:34 | RAD ---
EXAM: RIGHT UPPER QUADRANT ULTRASOUND. HISTORY: Cholelithiasis. COMPARISON: None. FINDINGS: Sonographic evaluation of the right upper quadrant was performed. The liver appears normal in parenchymal echotexture. There are no focal lesions. Many small gallstones are noted. There is no pericholecystic fluid or wall thickening. There is no sonographic Seo sign. The common duct measures 4 mm. The visualized portions of the head of the pancreas reveal no abnormality. The right kidney measures 11.6 cm. Cortical thickness and echogenicity are preserved. There is no hydronephrosis. The visualized portions of the abdominal aorta and inferior vena cava are grossly patent and normal in caliber. IMPRESSION: 1. Cholelithiasis without sonographic evidence of acute cholecystitis. Electronically signed by: Amador Abebe MD (01/31/2019 8:30 AM) [facility]
--- NOTE | 2019-01-31 10:14 | RAD ---
EXAM: HEPATOBILIARY SCINTIGRAPHY WITH GALLBLADDER EJECTION FRACTION. HISTORY: Abdominal pain. TECHNIQUE: Scintigraphic images are obtained of the liver and biliary system following intravenous administration of 5.5 mCi of technetium-99m Choletec. After filling of the gallbladder, 1.4 mcg of sincalide were infused and the gallbladder ejection fraction calculated. FINDINGS: There is prompt hepatic clearance of tracer from the blood pool. There is homogeneous distribution throughout the liver. There is normal filling of the gallbladder and normal emptying into the biliary system and small bowel. The gallbladder ejection fraction is 47% (normal >35%). IMPRESSION: 1. Normal gallbladder ejection fraction. Electronically signed by: Amador Abebe MD (01/31/2019 10:10 AM) [facility]
== END | disposition home or self-care (01) ==
LOC: US 07:20
PROVIDERS: ATTEND Specialist
DX: K80.20 Calculus of gallbladder without cholecystitis without obstruction (principal); K80.80 Other cholelithiasis without obstruction
CPT/HCPCS: 76705; 78227; A9537; J2805

== ENCOUNTER 2019-02-25 10:34 | Day surgery (SDC) | payer BC ==
--- NOTE | 2019-02-25 07:02 | PREOP HP ---
DATE OF SERVICE: HISTORY OF PRESENT ILLNESS: Shows that the patient apparently has had a right upper quadrant pain, discomfort and bloating after meals, quite severe at times. She has had this for about 2 years, saw her primary care doctor and about 9 months ago was found to have cholelithiasis. She therefore was referred to me. Recently, she has had, in the last month, a repeat sonogram, which showed gallstones with no other significant abnormalities. PAST MEDICAL HISTORY: Shows normal childhood diseases. She has no high blood pressure, cancer, TB, asthma or other diseases. ALLERGIES: SHE IS ALLERGIC TO VANCOMYCIN. PAST SURGICAL HISTORY: Shows that she has had an appendectomy about 4 years ago and this was done laparoscopically. FAMILY HISTORY: Noncontributory and she knows no one that has had any gallstones. Review of system was actually negative except for the postprandial gas, bloating and right upper quadrant pain that she has from time to time. SOCIAL HISTORY: Shows that she uses no drugs. Drinks only socially and not enough to get inebriated and does not smoke. PHYSICAL EXAMINATION: GENERAL: Shows an alert female in no acute distress. HEAD, EARS, EYES, NOSE AND THROAT: Grossly normal. CHEST: Bilaterally was clear as auscultation was normal. HEART: Had a rate of 73 beats per minute and was regular. No abnormalities and she had no murmurs, friction rubs or other problems. ABDOMEN: Soft when seen. There was no distention and she did have some pain to deep palpation in the epigastrium. Right upper quadrant also had some pain, but there was no guarding, rebound or anything to suggest peritoneal irritation. She states that sometimes her left abdomen hurts, but not at this point. EXTREMITIES: Grossly normal. PELVIC: Not done. IMPRESSION: Chronic cholecystitis and cholelithiasis. RAUL PIPER MD DR: TAMIR/angel JOB#: [id number] / [id number]
[~2019-02-25 10:34] MED LIST changes: +HYDROmorphone 2 MG/ML VIAL IV PRN; +IV RINGERS,LACTATED 1000ML 1,000 ML IV SCH; +LIDOCAINE 1% PF 2 ML VIAL. ID PRN; +ONDANSETRON PF 4 MG/2 ML VIAL. IV PRN; +PHEN-318 PO; +PROCHLORPERAZINE 10 MG/2 ML VIAL. IV PRN; +fentaNYL PF VIAL 100 MCG/2 ML VIAL IV PRN
[2019-02-25] MEDS ORDERED: IOHEXOL 300 MG/ML 50 ML VIAL. ONE (10:36)
[2019-02-25] MEDS ORDERED: BUPIVAC MPF-EPI 0.5%-1:200000 30 ML VIAL. ONE (10:36)
[2019-02-25] MEDS ORDERED: fentaNYL PF VIAL 100 MCG/2 ML VIAL ONE ×3 (10:56→14:50)
[2019-02-25] MEDS ORDERED: PROPOFOL 20 ML IV ONE (10:56)
[2019-02-25] MEDS ORDERED: LIDOCAINE 2% PF 5 ML VIAL. ONE (10:56)
[2019-02-25] MEDS ORDERED: ONDANSETRON PF 4 MG/2 ML VIAL. ONE (10:56)
[2019-02-25] MEDS ORDERED: DEXAMETHASONE SOD PHOS 4 MG/ML VIAL ONE ×2 (10:56→12:11)
[2019-02-25] MEDS ORDERED: ROCURONIUM 50 MG/5 ML VIAL. ONE (10:56)
[2019-02-25] MEDS ORDERED: MIDAZOLAM HCL/PF 2 MG/2 ML VIAL. ONE (10:56)
[2019-02-25 11:17] LABS: U PREG PATIENT NEGATIVE (NEG)
[2019-02-25 11:25] LABS: BASO % 1 % (0-3); EOS # 0.1 x10^3/uL (0.0-0.7); EOS % 1 % (0-3); HEMATOCRIT 33.6 % (36.0-47.0); HEMOGLOBIN 11.3 g/dL (12.0-15.5); LYMPH # 2.3 x10^3/uL (1.0-4.8); LYMPH % 34 % (24-48); MEAN CORPUSCULAR HEMOGLOBIN 32 pg (25-35); MEAN CORPUSCULAR HGB CONC 34 g/dL (31-37); MEAN CORPUSCULAR VOLUME 94 fL (79-100); MONO # 0.3 x10^3/uL (0.0-1.1); MONO % 5 % (0-9); NEUT # 3.9 x10^3uL (1.8-7.7); NEUT % 59 % (31-73); PLATELET COUNT 269 x10^3/uL (140-400); RED BLOOD COUNT 3.59 x10^6/uL (3.50-5.40); RED CELL DISTRIBUTION WIDTH 12.2 % (11.5-14.5); WHITE BLOOD COUNT 6.7 x10^3/uL (4.0-11.0)
[2019-02-25 11:41] LABS: CALCIUM 8.3 mg/dL (8.5-10.1); CREATININE 0.5 mg/dL (0.6-1.0); GFR 151.6; POTASSIUM 3.7 mmol/L (3.5-5.1)
--- NOTE | 2019-02-25 11:45 | PDOC ---
SURGICAL PROGRESS NOTE Subjective No change in dictated H&P. Vital Signs Vital Signs Date Time Temp Pulse Resp B/P (MAP) Pulse Ox O2 Delivery O2 Flow Rate FiO2 02/25/19 11:31 98.0 67 16 109/56 99 Room Air 98.0 Labs Laboratory Tests Test 02/25/19 11:00 02/25/19 11:15 Urine Test Negative (NEG) White Blood Count 6.7 x10^3/uL (4.0-11.0) Red Blood Count 3.59 x10^6/uL (3.50-5.40) Hemoglobin 11.3 g/dL (12.0-15.5) Hematocrit 33.6 % (36.0-47.0) Mean Corpuscular Volume 94 fL (79-100) Mean Corpuscular Hemoglobin 32 pg (25-35) Mean Corpuscular Hemoglobin Concent 34 g/dL (31-37) Red Cell Distribution Width 12.2 % (11.5-14.5) Platelet Count 269 x10^3/uL (140-400) Neutrophils (%) (Auto) 59 % (31-73) Lymphocytes (%) (Auto) 34 % (24-48) Monocytes (%) (Auto) 5 % (0-9) Eosinophils (%) (Auto) 1 % (0-3) Basophils (%) (Auto) 1 % (0-3) Neutrophils # (Auto) 3.9 x10^3uL (1.8-7.7) Lymphocytes # (Auto) 2.3 x10^3/uL (1.0-4.8) Monocytes # (Auto) 0.3 x10^3/uL (0.0-1.1) Eosinophils # (Auto) 0.1 x10^3/uL (0.0-0.7) Basophils # (Auto) 0.0 x10^3/uL (0.0-0.2) Activated Partial Thromboplast Time 29 SEC (24-38) Sodium Level 139 mmol/L (136-145) Potassium Level 3.7 mmol/L (3.5-5.1) Chloride Level 105 mmol/L (98-107) Carbon Dioxide Level 24 mmol/L (21-32) Anion Gap 10 (6-14) Blood Urea Nitrogen 11 mg/dL (7-20) Creatinine 0.5 mg/dL (0.6-1.0) Estimated GFR (Cockcroft-Gault) 151.6 BUN/Creatinine Ratio 22 (6-20) Glucose Level 86 mg/dL (70-99) Calcium Level 8.3 mg/dL (8.5-10.1) Laboratory Tests Test 02/25/19 11:00 02/25/19 11:15 Urine Test Negative (NEG) White Blood Count 6.7 x10^3/uL (4.0-11.0) Red Blood Count 3.59 x10^6/uL (3.50-5.40) Hemoglobin 11.3 g/dL (12.0-15.5) Hematocrit 33.6 % (36.0-47.0) Mean Corpuscular Volume 94 fL (79-100) Mean Corpuscular Hemoglobin 32 pg (25-35) Mean Corpuscular Hemoglobin Concent 34 g/dL (31-37) Red Cell Distribution Width 12.2 % (11.5-14.5) Platelet Count 269 x10^3/uL (140-400) Neutrophils (%) (Auto) 59 % (31-73) Lymphocytes (%) (Auto) 34 % (24-48) Monocytes (%) (Auto) 5 % (0-9) Eosinophils (%) (Auto) 1 % (0-3) Basophils (%) (Auto) 1 % (0-3) Neutrophils # (Auto) 3.9 x10^3uL (1.8-7.7) Lymphocytes # (Auto) 2.3 x10^3/uL (1.0-4.8) Monocytes # (Auto) 0.3 x10^3/uL (0.0-1.1) Eosinophils # (Auto) 0.1 x10^3/uL (0.0-0.7) Basophils # (Auto) 0.0 x10^3/uL (0.0-0.2) Activated Partial Thromboplast Time 29 SEC (24-38) Sodium Level 139 mmol/L (136-145) Potassium Level 3.7 mmol/L (3.5-5.1) Chloride Level 105 mmol/L (98-107) Carbon Dioxide Level 24 mmol/L (21-32) Anion Gap 10 (6-14) Blood Urea Nitrogen 11 mg/dL (7-20) Creatinine 0.5 mg/dL (0.6-1.0) Estimated GFR (Cockcroft-Gault) 151.6 BUN/Creatinine Ratio 22 (6-20) Glucose Level 86 mg/dL (70-99) Calcium Level 8.3 mg/dL (8.5-10.1) RAUL PIPER MD Feb 25, 2019 11:45
[2019-02-25 11:46] LABS: ALBUMIN 3.4 g/dL (3.4-5.0); ALBUMIN/GLOBULIN RATIO 0.9 (1.0-1.7); TOTAL BILIRUBIN 0.3 mg/dL (0.2-1.0); TOTAL PROTEIN 7.2 g/dL (6.4-8.2)
--- NOTE | 2019-02-25 11:48 | PDOC ---
SURGICAL PROGRESS NOTE Subjective Op Note: Surgeon...........................................Rich Pre op diag......................................chronic cholecystitis and cholelithiasis Post op diag....................................same Anesthesia......................................general Procedure.......................................lap venu with grams Drains............................................none Fluids.............................................see anesthesia sheet Blood loss......................................15cc Condition........................................satisfactory Vital Signs Vital Signs Date Time Temp Pulse Resp B/P (MAP) Pulse Ox O2 Delivery O2 Flow Rate FiO2 02/25/19 11:31 98.0 67 16 109/56 99 Room Air 98.0 Labs Laboratory Tests Test 02/25/19 11:00 02/25/19 11:15 Urine Test Negative (NEG) White Blood Count 6.7 x10^3/uL (4.0-11.0) Red Blood Count 3.59 x10^6/uL (3.50-5.40) Hemoglobin 11.3 g/dL (12.0-15.5) Hematocrit 33.6 % (36.0-47.0) Mean Corpuscular Volume 94 fL (79-100) Mean Corpuscular Hemoglobin 32 pg (25-35) Mean Corpuscular Hemoglobin Concent 34 g/dL (31-37) Red Cell Distribution Width 12.2 % (11.5-14.5) Platelet Count 269 x10^3/uL (140-400) Neutrophils (%) (Auto) 59 % (31-73) Lymphocytes (%) (Auto) 34 % (24-48) Monocytes (%) (Auto) 5 % (0-9) Eosinophils (%) (Auto) 1 % (0-3) Basophils (%) (Auto) 1 % (0-3) Neutrophils # (Auto) 3.9 x10^3uL (1.8-7.7) Lymphocytes # (Auto) 2.3 x10^3/uL (1.0-4.8) Monocytes # (Auto) 0.3 x10^3/uL (0.0-1.1) Eosinophils # (Auto) 0.1 x10^3/uL (0.0-0.7) Basophils # (Auto) 0.0 x10^3/uL (0.0-0.2) Activated Partial Thromboplast Time 29 SEC (24-38) Sodium Level 139 mmol/L (136-145) Potassium Level 3.7 mmol/L (3.5-5.1) Chloride Level 105 mmol/L (98-107) Carbon Dioxide Level 24 mmol/L (21-32) Anion Gap 10 (6-14) Blood Urea Nitrogen 11 mg/dL (7-20) Creatinine 0.5 mg/dL (0.6-1.0) Estimated GFR (Cockcroft-Gault) 151.6 BUN/Creatinine Ratio 22 (6-20) Glucose Level 86 mg/dL (70-99) Calcium Level 8.3 mg/dL (8.5-10.1) Laboratory Tests Test 02/25/19 11:00 02/25/19 11:15 Urine Test Negative (NEG) White Blood Count 6.7 x10^3/uL (4.0-11.0) Red Blood Count 3.59 x10^6/uL (3.50-5.40) Hemoglobin 11.3 g/dL (12.0-15.5) Hematocrit 33.6 % (36.0-47.0) Mean Corpuscular Volume 94 fL (79-100) Mean Corpuscular Hemoglobin 32 pg (25-35) Mean Corpuscular Hemoglobin Concent 34 g/dL (31-37) Red Cell Distribution Width 12.2 % (11.5-14.5) Platelet Count 269 x10^3/uL (140-400) Neutrophils (%) (Auto) 59 % (31-73) Lymphocytes (%) (Auto) 34 % (24-48) Monocytes (%) (Auto) 5 % (0-9) Eosinophils (%) (Auto) 1 % (0-3) Basophils (%) (Auto) 1 % (0-3) Neutrophils # (Auto) 3.9 x10^3uL (1.8-7.7) Lymphocytes # (Auto) 2.3 x10^3/uL (1.0-4.8) Monocytes # (Auto) 0.3 x10^3/uL (0.0-1.1) Eosinophils # (Auto) 0.1 x10^3/uL (0.0-0.7) Basophils # (Auto) 0.0 x10^3/uL (0.0-0.2) Activated Partial Thromboplast Time 29 SEC (24-38) Sodium Level 139 mmol/L (136-145) Potassium Level 3.7 mmol/L (3.5-5.1) Chloride Level 105 mmol/L (98-107) Carbon Dioxide Level 24 mmol/L (21-32) Anion Gap 10 (6-14) Blood Urea Nitrogen 11 mg/dL (7-20) Creatinine 0.5 mg/dL (0.6-1.0) Estimated GFR (Cockcroft-Gault) 151.6 BUN/Creatinine Ratio 22 (6-20) Glucose Level 86 mg/dL (70-99) Calcium Level 8.3 mg/dL (8.5-10.1) RAUL PIPER MD Feb 25, 2019 11:48
[2019-02-25] MEDS ORDERED: FAMOTIDINE 20 MG/2 ML VIAL ONE (12:12)
[2019-02-25] MEDS ORDERED: ePHEDrine PF IN SALINE 50 MG/10 ML SYRINGE. IV ONE (12:43)
[2019-02-25] MEDS ORDERED: SEVOFLURANE > 120 MINUTES. IH ONE ×2 (13:08→13:53)
[2019-02-25] MEDS ORDERED: GLYCOPYRROLATE 1 MG/5 ML VIAL. ONE (13:28)
[2019-02-25] MEDS ORDERED: KETOROLAC 30 MG/ML INJ FOR OR. INJ ONE (13:28)
[2019-02-25] MEDS ORDERED: NEOSTIGMINE METHYLSULFATE 5 MG/5 ML SYRINGE. ONE (13:28)
--- NOTE | 2019-02-25 14:33 | DISCH ---
DISCHARGE INSTRUCTIONS Condition on Discharge Condition on Discharge: Stable Activity After Discharge Activity Instructions for Disc: Other, see below Other activity instructions: no strenuous activity Lifting Instructions after Dis: No heavy lifting Diet after Discharge Additional Diet Restrictions: diet as tolerated Wound Incision Care Other wound/incision instructi: may shower and leave dresing on as long s possible Follow-Up Follow up with: call and make appointmen arely hernández in 10-14 days RAUL PIPER MD Feb 25, 2019 14:33
[2019-02-25] MEDS: fentaNYL PF VIAL 100 MCG/2 ML VIAL IV PRN ×2 (14:55→15:23)
[2019-02-25] MEDS ORDERED: OXYC1TAB19 PO ×2 (15:04→15:05)
[2019-02-25] MEDS ORDERED: oxyCODONE/APAP 7.5/325 1 TAB TABLET PO ONE (15:15)
[2019-02-25] MEDS ORDERED: MORPHINE SULFATE 2 MG/ML VIAL. ONE (15:24)
[2019-02-25] MEDS: MORPHINE SULFATE 2 MG/ML VIAL. IV PRN ×2 (15:25→15:44)
[2019-02-25 16:00] VITALS: BP 114/61
--- NOTE | 2019-02-26 10:16 | OP ---
DATE OF SURGERY: 02/25/2019 SURGEON: Willis Piper MD PREOPERATIVE DIAGNOSES: Chronic cholecystitis and cholelithiasis. POSTOPERATIVE DIAGNOSES: Chronic cholecystitis and cholelithiasis. ANESTHESIA: General. PROCEDURE: Laparoscopic cholecystectomy with attempted cholangiogram. TECHNIQUE: Under general anesthesia, the patient was properly prepped and draped in a routine fashion. The patient had had a previous surgery and as such, we made a small incision in the right upper quadrant in an oblique fashion about a quarter of an inch in size and carried it down through the skin with a 15 blade. We pulled up with towel clips on either side and then passed a Veress needle into the peritoneal cavity. We placed about 2 mL of saline and let it flow by gravity into the peritoneal cavity proving we were in. This having been done, we then insufflated the abdomen up to 15 and then removed this and placed a 5-mm trocar into the area. We then placed the camera there. All appeared normal. There were no adhesions luckily to the anterior abdominal wall, around the umbilicus and as such, we made a small incision, about half an inch in size below the umbilicus and carried this down through the skin. We did this with a 15 blade and then passed an 11-mm trocar. We then removed the 5-mm camera and put in the 11-mm camera into the umbilical port. We then placed the 5-mm trocar in the right upper quadrant and one laterally in the abdomen. We did this under direct visualization, making certain not to injure any intraabdominal contents. The patient was placed in reverse Trendelenburg left side down and it was obvious that she had a lot of adhesions to the gallbladder. Luckily, these could be pulled away using the dissectors. We slowly pulled these away and got the gallbladder exposed. We grasped the fundus of the gallbladder with right lateral grasper, pushed up toward the right shoulder and then grasped the ampulla with the right upper quadrant grasper. We then pulled the catheter away from the cystic duct and encircled the cystic duct high next to the gallbladder. We then placed 2 clips on the gallbladder, made a small incision in the cystic duct next to the gallbladder and then through a needle placed the catheter, which had the dye in it. Bubbles had been removed from the catheter and the syringe. The cystic duct was quite small once we got past much of the gallbladder and as such, we had trouble. Once we got the catheter into the proximal portion of the cystic duct next to the gallbladder, we could not thread it down and we could not clip it in place or get it for enough and we tried this on numerous occasions, but I did not want to puncture or rupture anything and so we had to abort this. Cystic duct was then clamped 3 times on the patient's side and divided. Cystic artery; there were a couple of vascular structures. These were all clipped high close to the gallbladder once and then 2 or 3 times on the patient's side and these were divided. It should be noted that the gallbladder was then shelled out of gallbladder fossa using Harmonic scalpel sterilely taken away from the liver bed and the lateral portions of the peritoneal reflections. We did this until we had the gallbladder only up by its fundus and we did inspect the areas around the hilum. There were no bile leaks and no blood seen. There was a small bit of bowel that was seen once we opened the cystic duct, but once we clipped it, there was no bile leak. There were no bile leaks at all. This was just the severed cystic duct as we tried to put the catheter in and clip. The gallbladder was then amputated from the liver tip as I said there was no bleeding in the liver bed or anywhere. The 5-mm camera was then placed in the right upper quadrant port or epigastric port and then the EndoCatch basket was placed through the umbilical port. This was followed over to the gallbladder. The gallbladder was placed in the bag and then we put the gallbladder in this area and fired it, so the gallbladder would be in. There was no bowel leak whatsoever. The EndoCatch basket and gallbladder were then removed. The stones in the gallbladder could be seen. We could not get the gallbladder out. We made a small incision about 3/7 of an inch inferiorly in the midline at the infraumbilical port and then we were able to take gallbladder in the bag and pulled out. We then placed Norma clamps superiorly and inferiorly at the small incision in the fascia at the infraumbilical area and then placed 3 #0 Prolene sutures there and tied them. We then insufflated the abdomen. There were no leaks and we then inspected the abdomen. No abnormalities were noted. Some of the blood lateral to the liver was aspirated. We had a limited amount of bleeding, probably that over 10-15 mL. We then aspirated all of the CO2 from the abdomen, especially above the liver and the ports were removed. The wounds were irrigated with saline and then approximated the deeper structures with 4-0 interrupted Vicryl and then the skin was closed in all locations using a subcuticular 5-0 Vicryl. The procedure was now terminated as sterile Tegaderm dressings were applied. The blood loss as stated before was about 10-15 mL. Fluids given can be obtained from the anesthesia sheet. There were no drains and the condition of the patient is satisfactory as she is returned to the recovery room. Previously, we did inject the fascia with 0.5% Marcaine and epinephrine. The procedure was now terminated for the patient. WILLIS PIPER MD DR: TAMIR/nts JOB#: [id number] / [id number]
--- NOTE | 2019-02-27 18:06 | PATHOLOGY ---
[facility] Accession Number: [id number] . 01 Material submitted: . gallbladder - GALLBLADDER . 01 Clinical history: . Cholelithiasis . 02 Diagnosis: Gallbladder, cholecystectomy: - Cholelithiasis. - Cholesterolosis. - Chronic cholecystitis. . ([facility]; 02/27/2019) [facility]/02/27/2019 . 02 Comment: There is no evidence of malignancy. . ([facility]:mm; 02/27/2019) . 02 Electronically signed: . Heber Roberson MD, Pathologist NPI- [id number] . 01 Gross description: . Received in formalin labeled "Oneal, Shauna, gallbladder" is an intact cholecystectomy specimen measuring 8.5 x 3.0 x 2.3 cm. The serosa is pink-guzman and smooth and the specimen is opened to reveal dark green velvety mucosa with extensive yellow stippling without polyps or masses. The average wall thickness is 0.2 cm. Calculi are present, which are yellow-guzman, multifaceted, measure in aggregate 7.0 x 4.8 x 0.4 cm, and range from 0.1-0.4 cm in greatest dimension. Tie Tamper sections of the fundus and body and the cystic duct margin are submitted in A1. ([facility]; 02/26/2019) SYC/SYC . 02 Pathologist provided ICD-10: K80.10, K82.4 . 02 CPT . 865116 Specimen Comment: A courtesy copy of this report has been sent to Specimen Comment: [phone], . Specimen Comment: Report sent to DR PIPER / DR SANTIAGO Performed at: [address] [place] [address] [address], [place], [place] [id number] MD Stan Lizama MD Phone: [phone] Performed at: [address] [id number] MD Heber Roberson MD Phone: [phone]
== END 2019-02-25 16:29 | disposition home or self-care (01) ==
LOC: SURG 10:34
PROVIDERS: ATTEND Specialist
DX: K80.10 Calculus of gallbladder with chronic cholecystitis without obstruction (principal); Z79.899 Other long term (current) drug therapy; Z79.01 Long term (current) use of anticoagulants; Z88.1 Allergy status to other antibiotic agents; Z98.890 Other specified postprocedural states; Z72.89 Other problems related to lifestyle
CPT/HCPCS: 36415; 47563; 80053; 81025; 85025; 85730; A7015; J0171; J0690; J1100; J1885; J2001; J2250; J2270; J2405; J2704; J2710; J3010; J3490; J7030; J7120; Q9967

== ENCOUNTER 2019-06-16 17:00 | Emergency (ER) | payer BC ==
[~2019-06-16] VITALS: Ht 157.5 cm; Wt 74.4 kg
[~2019-06-16 17:00] MED LIST changes: -HYDROmorphone 2 MG/ML VIAL IV PRN; -IV RINGERS,LACTATED 1000ML 1,000 ML IV SCH; -LIDOCAINE 1% PF 2 ML VIAL. ID PRN; -ONDANSETRON PF 4 MG/2 ML VIAL. IV PRN; +OXYC1TAB19 PO; -PROCHLORPERAZINE 10 MG/2 ML VIAL. IV PRN; -fentaNYL PF VIAL 100 MCG/2 ML VIAL IV PRN
[2019-06-16] MEDS ORDERED: IV NORMAL SALINE 1000ML BAG 1,000 ML IV ONE (17:30)
[2019-06-16] MEDS ORDERED: LORazepam 0.5 MG TABLET PO ONE (17:30)
--- NOTE | 2019-06-16 17:30 | PHYS DOC ---
Past Medical History Past Medical History: Gallstones, Kidney Stone Past Surgical History: Appendectomy Additional Past Surgical Histo: DNC, Alcohol Use: Occasionally Drug Use: None Adult General Chief Complaint Chief Complaint: SHORTNESS OF BREATH HPI HPI 23-year-old female presenting with palpitations for the heart was racing to some mild shortness of breath really no specific chest pain just not feeling well feels out of it ever since drinking alcohol and doing cocaine last night Review of Systems Review of Systems Constitutional: Denies fever or chills [] Eyes: Denies change in visual acuity, redness, or eye pain [] HENT: Denies nasal congestion or sore throat [] Respiratory: : Denies dysuria or hematuria [] Musculoskeletal: Denies back pain or joint pain [] Integument: Denies rash or skin lesions [] Neurologic: Denies headache, focal weakness or sensory changes [] Endocrine: Denies polyuria or polydipsia [] All other systems were reviewed and found to be within normal limits, except as documented in this note. Current Medications Current Medications Current Medications Medications (Trade) Dose Ordered Sig/Kiersten Start Time Stop Time Status Last Admin Dose Admin Lorazepam (Ativan) 1 mg 1X ONCE 06/16/19 17:30 06/16/19 17:31 DC Sodium Chloride 1,000 ml @ 1,000 mls/hr 1X ONCE 06/16/19 17:30 06/16/19 18:29 Allergies Allergies Allergies Coded Allergies Type Severity Reaction Last Updated Verified vancomycin Allergy Severe Itching 07/12/18 Yes Physical Exam Physical Exam Constitutional: Well developed, well nourished, no acute distress, non-toxic appearance. [] HENT: Normocephalic, atraumatic, bilateral external ears normal, oropharynx moist, no oral exudates, nose normal. [] Eyes: PERRLA, EOMI, conjunctiva normal, no discharge. [] Neck: Normal range of motion, no tenderness, supple, no stridor. [] Cardiovascular:Heart rate regular rhythm, no murmur [] Lungs & Thorax: Bilateral breath sounds clear to auscultation [] Abdomen: Bowel sounds normal, soft, no tenderness, no masses, no pulsatile masses. [] Skin: Warm, dry, no erythema, no rash. [] Back: No tenderness, no CVA tenderness. [] Extremities: No tenderness, no cyanosis, no clubbing, ROM intact, no edema. [] Neurologic: Alert and oriented X 3, normal motor function, normal sensory function, no focal deficits noted. [] Psychologic: Affect normal, judgement normal, mood normal. [] Current Patient Data Vital Signs Vital Signs Date Time Temp Pulse Resp B/P (MAP) Pulse Ox O2 Delivery O2 Flow Rate FiO2 06/16/19 17:05 98.0 83 14 123/64 (83) 100 Room Air 98.0 Lab Values Laboratory Tests Test 06/16/19 17:38 Sodium Level 142 mmol/L (136-145) Potassium Level 3.9 mmol/L (3.5-5.1) Chloride Level 104 mmol/L (98-107) Carbon Dioxide Level 26 mmol/L (21-32) Anion Gap 12 (6-14) Blood Urea Nitrogen 9 mg/dL (7-20) Creatinine 0.5 mg/dL (0.6-1.0) L Estimated GFR (Cockcroft-Gault) 151.6 BUN/Creatinine Ratio 18 (6-20) Glucose Level 97 mg/dL (70-99) Calcium Level 8.6 mg/dL (8.5-10.1) Total Bilirubin 0.2 mg/dL (0.2-1.0) Aspartate Amino Transferase (AST) 15 U/L (15-37) Alanine Aminotransferase (ALT) 15 U/L (14-59) Alkaline Phosphatase 54 U/L (46-116) Troponin I Quantitative < 0.017 ng/mL (0.000-0.055) Total Protein 7.8 g/dL (6.4-8.2) Albumin 3.6 g/dL (3.4-5.0) Albumin/Globulin Ratio 0.9 (1.0-1.7) L Laboratory Tests 06/16/19 17:38 EKG EKG []Normal sinus rhythm rate of 83 normal intervals no STEMI no ischemia Radiology/Procedures Radiology/Procedures [] Impressions: CXR NEG MY READ Course & Med Decision Making Course & Med Decision Making Pertinent Labs and Imaging studies reviewed. (See chart for details) []Recent cocaine use with some palpitations some mild shortness of breath plan to get troponins to rule out cardiac dysfunction electrolytes chest x-ray and IV fluids Ativan PLAN TO D/C ONCE PREG TEST NEGATIVE Dragon Disclaimer Dragon Disclaimer This electronic medical record was generated, in whole or in part, using a voice recognition dictation system. Departure Departure Impression: Primary Impression: Palpitations Additional Impression: Cocaine use Disposition: 01 HOME, SELF-CARE Condition: STABLE Referrals: TEJAS SANTIAGO MD (PCP) Problem Qualifiers CHRISTIANO PEREZ MD Jun 16, 2019 17:30
[2019-06-16 17:55] LABS: CALCIUM 8.6 mg/dL (8.5-10.1); CREATININE 0.5 mg/dL (0.6-1.0); GFR 151.6; POTASSIUM 3.9 mmol/L (3.5-5.1)
[2019-06-16 18:01] LABS: ALBUMIN 3.6 g/dL (3.4-5.0); ALBUMIN/GLOBULIN RATIO 0.9 (1.0-1.7); TOTAL BILIRUBIN 0.2 mg/dL (0.2-1.0); TOTAL PROTEIN 7.8 g/dL (6.4-8.2)
[2019-06-16 18:30] VITALS: BP 126/75
--- NOTE | 2019-06-17 00:21 | RAD ---
PROCEDURE: PORTABLE CHEST 1V CLINICAL INDICATION: Chest pain. COMPARISON: None FINDINGS: No pneumothorax identified. Cardiac and mediastinal contours unremarkable. No pulmonary consolidation or acute airspace disease. No acute osseous abnormalities identified. IMPRESSION: No pulmonary consolidation or acute airspace disease. Electronically signed by: Mahendra Overton DO (06/17/2019 12:18 AM) [facility]
--- NOTE | 2019-06-17 08:19 | EKG ---
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
== END 2019-06-16 18:44 | disposition home or self-care (01) ==
LOC: ER 17:00
DX: R00.2 Palpitations (principal); F14.90 Cocaine use, unspecified, uncomplicated; R06.02 Shortness of breath; Z88.1 Allergy status to other antibiotic agents
CPT/HCPCS: 36415; 71045; 80053; 84484; 84702; 93005; 99285; J7030

== ENCOUNTER 2020-03-17 21:41 | Emergency (ER) | payer SELFPAY ==
[~2020-03-17] VITALS: Ht 157.5 cm; Wt 75.0 kg
--- NOTE | 2020-03-17 22:31 | PHYS DOC ---
Past Medical History Past Medical History: Gallstones, Kidney Stone (DARIANA MARSHALL APRN) Past Surgical History: Appendectomy, Cholecystectomy Additional Past Surgical Histo: D&C (DARIANA MARSHALL APRN) Smoking Status: Never Smoker Alcohol Use: Occasionally Drug Use: Cocaine (DARIANA MARSHALL APRN) General Adult EDM: Chief Complaint: OTHER COMPLAINTS HPI: HPI: Patient is a 24 year old female who presents to the emergency department with complaints of right jaw pain, right ear pain, and right jaw clicking after she was accidentally hit in the mouth while wrestling with her brother earlier this evening. Patient states that some of her lower teeth chipped but denies any loose or missing teeth. She states that she also bit her tongue but denies any bleeding at this time. She denies any loss of consciousness, neck pain, dizziness, vision changes, numbness, tingling, or weakness. She denies any nausea or vomiting. She currently reports her pain 8 out of 10 on the pain scale, the pain radiates to her right ear, and increases with movement, there are no alleviating factors. Patient denies taking anything for pain prior to arrival. (DARIANA MARSHALL APRN) Review of Systems: Review of Systems: Constitutional: Denies fever or chills. [] Eyes: Denies change in visual acuity. [] HENT: See HPI Respiratory: Denies cough or shortness of breath. [] GI: Denies nausea, or vomiting Musculoskeletal: Denies back pain; see HPI Integument: See HPI Neurologic: Denies headache, focal weakness or sensory changes. [] Psychiatric: Denies depression or anxiety. [] (DARIANA MARSHALL APRN) Heart Score: Risk Factors: Risk Factors: DM, Current or recent (<one month) smoker, HTN, HLP, family history of CAD, obesity. Risk Scores: Score 0 - 3: 2.5% MACE over next 6 weeks - Discharge Home Score 4 - 6: 20.3% MACE over next 6 weeks - Admit for Clinical Observation Score 7 - 10: 72.7% MACE over next 6 weeks - Early Invasive Strategies (DARIANA MARSHALL APRN) Allergies: Allergies: Allergies Coded Allergies Type Severity Reaction Last Updated Verified vancomycin Allergy Severe Itching 07/12/18 Yes (DARIANA MARSHALL APRN) Physical Exam: PE: Constitutional: Well developed, well nourished, no acute distress, non-toxic appearance. [] HENT: Normocephalic, atraumatic, bilateral external ears normal, bilateral TMs normal, oropharynx moist, no oral exudates, nose normal; superficial puncture brito to patient's tongue without any active bleeding, small chips to lower front teeth, no loose teeth;R TMJ TTP, no edema, clicking with opening of mouth [] Eyes: PERRLA, EOMI, conjunctiva normal, no discharge. [] Neck: Normal range of motion, no bony tenderness, supple, no stridor. [] Cardiovascular:Heart rate regular rhythm Lungs & Thorax: Respirations even and unlabored, no retractions, no respiratory distress Skin: Warm, dry, no erythema, no rash. [] Extremities: No cyanosis, ROM intact, no edema. [] Neurologic: Alert and oriented X 3, no focal deficits noted. [] Psychologic: Affect normal, judgement normal, mood normal. [] (DARIANA MARSHALL APRN) Current Patient Data: Labs: Laboratory Tests Test 03/17/20 22:08 POC Urine HCG, Qualitative Hcg negative (Negative) (DARIANA MARSHALL APRN) EKG: EKG: [] (DARIANA MARSHALL APRN) Radiology/Procedures: Radiology/Procedures: PROCEDURE: CT MAXILLOFACIAL WO CONTRAST EXAM: CT facial bones without contrast CLINICAL HISTORY: R jaw pain after accidentally hit in mouth COMPARISON: None available. TECHNIQUE: Helical CT of the face/paranasal sinuses was acquired and axial, coronal and sagittal reformatted images were generated. ---PQRS compliance statement - One or more of the following individualized dose reduction techniques were utilized for this study: 1. Automated exposure control 2. Adjustment of the mA and/or kV according to patient size 3. Use of iterative reconstruction technique--- FINDINGS: No definite fracture is noted of the facial bones. The visualized paranasal sinuses are well-aerated. No evidence of air-fluid levels. The mastoids are unremarkable. The globes, extraocular muscles, optic nerves and retrobulbar fat are normal. Visualized upper aerodigestive tract is normal. Mandible and bilateral temporomandibular joints are normal. IMPRESSION: No evidence of acute fracture or dislocation of the facial bones.[] (DARIANA MARSHALL APRN) Course & Med Decision Making: Course & Med Decision Making Pertinent Labs and Imaging studies reviewed. (See chart for details) 24-year-old female presents the emergency department with complaints of right jaw pain and popping that radiates to her right ear after accidentally being kicked in the face while wrestling with her brother. Urine test is negative. CT maxillofacial ordered. 2252-CT maxillofacial still pending. Report to at this time. He will follow-up on CT results and make final disposition for patient. [] (DARIANA MARSHALL APRN) Dragon Disclaimer: Dragon Disclaimer: This electronic medical record was generated, in whole or in part, using a voice recognition dictation system. (DARIANA MARSHALL APRN) Departure Departure Impression: Primary Impression: Contusion of mandibular joint area Qualified Codes: S00.83XA - Contusion of other part of head, initial encounter Disposition: 01 HOME, SELF-CARE Condition: STABLE Referrals: TEJAS SANTIAGO MD (PCP) 2-3 days Patient Instructions: Facial or Scalp Contusion Additional Instructions: EMERGENCY DEPARTMENT GENERAL DISCHARGE INSTRUCTIONS Thank you for coming to [facility] Emergency Department (ED) today and trusting us with you care. We trust that you had a positivie experience in our Emergency Department. If you wish to speak to the department management, you may call the Director at [phone]. YOUR FOLLOW UP INSTRUCTIONS ARE FOLLOWS: 1. Do you have a private Doctor? If you do not have a private doctor, please ask for a resource list of physicians or clinics that may be able to assist you with follow up care. 2. The Emergency Physicain has interpreted your x-rays. The X-Ray specialist will also review them. If there is a change in the findings, you will be notified in 48 hours when at all possible. 3. A lab test or culture has been done, your results will be reviewed and you will be notified if you need a change in treatment. ADDITIONAL INSTRUCTIONS AND INFORMATION: 1. Your care today has been supervised by a physician who is specially trained in emergency care. Many problems require more than one evaluation for a complete diagnosis and treatment. We recommend that you schedule your follow up appointment as recommended to ensure complete treatment of you illness or injury. If you are unable to obtain follow up care and continue to have a problem, or if your consition worsens, we recommend that you return to the ED. 2. We are not able to safely determine your condition over the phone nor are we able to give sound medical advice over the phone. For these safety reasons, if you call for medical advice we will ask you to come to the ED for further evaluation. 3. If you have any questions regarding these discharge instructions please call the ED at [phone]. SAFETY INFORMATION: In the interest of safety, wellness, and injury prevention; we encourage you to wear your sealbelt, if you smoke; quite smoking, and we encourage family to use a protective helmet for bicycling and other sporting events that present an increased risk for head injury. IF YOUR SYMPTOMS WORSEN OR NEW SYMPTOMS DEVELOP, OR YOU HAVE CONCERNS ABOUT YOUR CONDITION; OR IF YOUR CONDITION WORSENS WHILE YOU ARE WAITING FOR YOUR FOLLOW UP APPOINTMENT; EITHER CONTACT YOUR PRIMARY CARE DOCTOR, THE PHYSICIAN WHOSE NAME AND NUMBER YOU WERE GIVEN, OR RETURN TO THE ED IMMEDIATELY. Scripts Hydrocodone/Apap 5-325 (NORCO 5-325 TABLET) 1 Each Tablet 1-2 EACH PO PRN Q6HRS PRN for PAIN for 4 Days, #12 as needed for pain Prov: MILIND WRIGHT MD 03/17/20 Justicifation of Admission Dx: Justifications for Admission: Justification of Admission Dx: N/A (DARIANA MARSHALL APRN) DARIANA MARSHALL APRN Mar 17, 2020 22:31 MILIND WRIGHT MD Mar 17, 2020 23:08
--- NOTE | 2020-03-17 23:04 | RAD ---
EXAM: CT facial bones without contrast CLINICAL HISTORY: R jaw pain after accidentally hit in mouth COMPARISON: None available. TECHNIQUE: Helical CT of the face/paranasal sinuses was acquired and axial, coronal and sagittal reformatted images were generated. ---PQRS compliance statement - One or more of the following individualized dose reduction techniques were utilized for this study: 1. Automated exposure control 2. Adjustment of the mA and/or kV according to patient size 3. Use of iterative reconstruction technique--- FINDINGS: No definite fracture is noted of the facial bones. The visualized paranasal sinuses are well-aerated. No evidence of air-fluid levels. The mastoids are unremarkable. The globes, extraocular muscles, optic nerves and retrobulbar fat are normal. Visualized upper aerodigestive tract is normal. Mandible and bilateral temporomandibular joints are normal. IMPRESSION: No evidence of acute fracture or dislocation of the facial bones. Electronically signed by: Fransisco Pagan MD (03/17/2020 11:01 PM) MABEL
[2020-03-17] MEDS ORDERED: HYDR-3164 PO (23:28)
[2020-03-17 23:45] VITALS: BP 129/82
== END 2020-03-17 23:50 | disposition home or self-care (01) ==
LOC: ER 21:41
DX: S00.83XA Contusion of other part of head, initial encounter (principal); H92.01 Otalgia, right ear; R68.84 Jaw pain; Z90.89 Acquired absence of other organs; Z90.49 Acquired absence of other specified parts of digestive tract; Z87.442 Personal history of urinary calculi; Z98.890 Other specified postprocedural states; W22.8XXA Striking against or struck by other objects, initial encounter; Y93.72 Activity, wrestling; Y92.89 Other specified places as the place of occurrence of the external cause; Y99.8 Other external cause status
CPT/HCPCS: 70486; 81025; 99284

== ENCOUNTER 2020-09-24 17:47 | Emergency (ER) | payer BC, OTHER ==
[~2020-09-24] VITALS: Ht 157.5 cm; Wt 75.0 kg
[~2020-09-24 17:47] MED LIST changes: +HYDR-3164 PO
[2020-09-24] MEDS ORDERED: ACETAMINOPHEN 500 MG TABLET PO ONE (19:00)
[2020-09-24] MEDS ORDERED: ONDANSETRON ODT 4 MG TAB.RAPDIS. PO ONE (19:00)
--- NOTE | 2020-09-24 19:04 | PHYS DOC ---
Past Medical History Past Medical History: Kidney Stone Past Surgical History: Appendectomy, Cholecystectomy Additional Past Surgical Histo: D&C Smoking Status: Former Smoker Alcohol Use: Rarely Drug Use: Cocaine Adult General Chief Complaint Chief Complaint: MULTIPLE COMPLAINTS HPI HPI Patient is a 25 year old with no known past history presents emergency department complaint of new onset of flulike illness. Patient states the last 24 hours she developed mild headache, body aches and nausea and diarrhea. Denies any vomiting. Patient states that she has had 3 episodes of nonbloody diarrhea. Does note some mild left lower quadrant abdominal pain but denies any fever, chills, chest pain or shortness of breath. Review of Systems Review of Systems Constitutional: Denies fever or chills [] Eyes: Denies change in visual acuity, redness, or eye pain [] HENT: Denies nasal congestion or sore throat [] Respiratory: Denies cough or shortness of breath [] Cardiovascular: No additional information not addressed in HPI [] GI: Denies abdominal pain, nausea, vomiting, bloody stools or diarrhea [] : Denies dysuria or hematuria [] Musculoskeletal: Denies back pain or joint pain [] Integument: Denies rash or skin lesions [] Neurologic: Denies headache, focal weakness or sensory changes [] Endocrine: Denies polyuria or polydipsia [] All other systems were reviewed and found to be within normal limits, except as documented in this note. Current Medications Current Medications Current Medications Medications (Trade) Dose Ordered Sig/Kiersten Start Time Stop Time Status Last Admin Dose Admin Acetaminophen (Tylenol) 1,000 mg 1X ONCE 09/24/20 19:00 09/24/20 19:06 DC Ibuprofen (Motrin) 800 mg 1X ONCE 09/24/20 19:15 09/24/20 19:16 DC 09/24/20 19:11 800 MG Ondansetron HCl (Zofran Odt) 4 mg 1X ONCE 09/24/20 19:00 09/24/20 19:03 DC 09/24/20 19:11 4 MG Allergies Allergies Allergies Coded Allergies Type Severity Reaction Last Updated Verified vancomycin Allergy Severe Itching 07/12/18 Yes Physical Exam Physical Exam Constitutional: Well developed, well nourished, no acute distress, non-toxic appearance. [] HENT: Normocephalic, atraumatic, bilateral external ears normal, oropharynx moist, no oral exudates, nose normal. [] Eyes: PERRLA, EOMI, conjunctiva normal, no discharge. [] Neck: Normal range of motion, no tenderness, supple, no stridor. [] Cardiovascular:Heart rate regular rhythm, no murmur [] Lungs & Thorax: Bilateral breath sounds clear to auscultation [] Abdomen: Bowel sounds normal, soft, no tenderness, no masses, no pulsatile masses. [] Skin: Warm, dry, no erythema, no rash. [] Back: No tenderness, no CVA tenderness. [] Extremities: No tenderness, no cyanosis, no clubbing, ROM intact, no edema. [] Neurologic: Alert and oriented X 3, normal motor function, normal sensory function, no focal deficits noted. [] Psychologic: Affect normal, judgement normal, mood normal. [] Current Patient Data Vital Signs Vital Signs Date Time Temp Pulse Resp B/P (MAP) Pulse Ox O2 Delivery O2 Flow Rate FiO2 09/24/20 19:14 71 16 122/80 (94) 100 Room Air 09/24/20 18:23 98.2 98.2 Lab Values Laboratory Tests Test 09/24/20 18:24 09/24/20 18:32 09/24/20 19:14 Urine Collection Type Unknown Urine Color Yellow Urine Clarity Cloudy Urine pH 7.5 (<5.0-8.0) Urine Specific [place] 1.025 (1.000-1.030) Urine Protein Negative mg/dL (NEG-TRACE) Urine Glucose (UA) Negative mg/dL (NEG) Urine Ketones (Stick) Negative mg/dL (NEG) Urine Blood Negative (NEG) Urine Nitrite Negative (NEG) Urine Bilirubin Negative (NEG) Urine Urobilinogen Dipstick 0.2 mg/dL (0.2 mg/dL) Urine Leukocyte Esterase Trace (NEG) Urine RBC 0 /HPF (0-2) Urine WBC 5-10 /HPF (0-4) Urine Squamous Epithelial Cells Few /LPF Urine Amorphous Sediment Present /HPF Urine Bacteria Few /HPF (0-FEW) Urine Mucus Slight /LPF POC Urine HCG, Qualitative Hcg negative (Negative) Influenza Type A Antigen Negative (NEGATIVE) Influenza Type B Antigen Negative (NEGATIVE) EKG EKG [] Radiology/Procedures Radiology/Procedures [] Course & Med Decision Making Course & Med Decision Making Pertinent Labs and Imaging studies reviewed. (See chart for details) 25F presenting wiht mild symptoms consistent with flu like illness. Pt also with mild LLQ abdominal pain with dysmenorrhea and delayed menses that raises concern for or ovarian torsion. Will obtain ua/preg, US and treat symptomatically. Dragon Disclaimer Dragon Disclaimer This electronic medical record was generated, in whole or in part, using a voice recognition dictation system. Departure Departure Impression: Primary Impression: Viral syndrome Disposition: 01 DC HOME SELF CARE/HOMELESS Condition: GOOD Referrals: TEJAS SANTIAGO MD (PCP) Patient Instructions: Viral Syndrome Additional Instructions: EMERGENCY DEPARTMENT GENERAL DISCHARGE INSTRUCTIONS Thank you for coming to [facility] Emergency Department (ED) today and trusting us with you care. We trust that you had a positive experience in our Emergency Department. If you wish to speak to the department management, you may call the Director at [phone]. YOUR FOLLOW UP INSTRUCTIONS ARE FOLLOWS: 1. Do you have a private Doctor? If you do not have a private doctor, please ask for a resource list of physicians or clinics that may be able to assist you with follow up care. 2. The Emergency Physicain has interpreted your x-rays. The X-Ray specialist will also review them. If there is a change in the findings, you will be notified in 48 hours when at all possible. 3. A lab test or culture has been done, your results will be reviewed and you will be notified if you need a change in treatment. ADDITIONAL INSTRUCTIONS AND INFORMATION: 1. Your care today has been supervised by a physician who is specially trained in emergency care. Many problems require more than one evaluation for a complete diagnosis and treatment. We recommend that you schedule your follow up appointment as recommended to ensure complete treatment of you illness or injury. If you are unable to obtain follow up care and continue to have a problem, or if your condition worsens, we recommend that you return to the ED. 2. We are not able to safely determine your condition over the phone nor are we able to give sound medical advice over the phone. For these safety reasons, if you call for medical advice we will ask you to come to the ED for further evaluation. 3. If you have any questions regarding these discharge instructions please call the ED at [phone]. SAFETY INFORMATION: In the interest of safety, wellness, and injury prevention; we encourage you to wear your sealbelt, if you smoke; quite smoking, and we encourage family to use a p rotective helmet for bicycling and other sporting events that present an increased risk for head injury. IF YOUR SYMPTOMS WORSEN OR NEW SYMPTOMS DEVELOP, OR YOU HAVE CONCERNS ABOUT YOUR CONDITION; OR IF YOUR CONDITION WORSENS WHILE YOU ARE WAITING FOR YOUR FOLLOW UP APPOINTMENT; EITHER CONTACT YOUR PRIMARY CARE DOCTOR, THE PHYSICIAN WHOSE NAME AND NUMBER YOU WERE GIVEN, OR RETURN TO THE ED IMMEDIATELY. AKUA POMPA MD Sep 24, 2020 19:04
[2020-09-24 19:10] LABS: BILIRUBIN,URINE NEGATIVE (NEG); CLARITY,URINE CLOUDY; COLOR,URINE YELLOW; NITRITE,URINE NEGATIVE (NEG); PH,URINE 7.5 (<5.0-8.0); PROTEIN,URINE NEGATIVE (NEG-TRACE); UROBILINOGEN,URINE 0.2 mg/dL (0.2 mg/dL)
[2020-09-24] MEDS ORDERED: IBUPROFEN 400 MG TABLET. PO ONE (19:15)
[2020-09-24 19:17] LABS: BACTERIA,URINE FEW /HPF (0-FEW)
[2020-09-24 19:18] LABS: AMORPHOUS SEDIMENT,UR PRESENT /HPF
[2020-09-24 19:19] LABS: RBC,URINE 0 /HPF (0-2)
[2020-09-24 19:38] LABS: INFLUENZA A PATIENT NEGATIVE (NEGATIVE); INFLUENZA B PATIENT NEGATIVE (NEGATIVE)
--- NOTE | 2020-09-24 20:01 | RAD ---
EXAM: AP View of the chest DATE: 09/24/2020 7:30 PM INDICATION: Reason: cough / Spl. Instructions: / History: COMPARISON: 06/16/2019 FINDINGS: The heart is not enlarged. Mediastinal and hilar contours are normal. No focal parenchymal airspace opacity. No pleural effusion or pneumothorax. IMPRESSION: 1. No radiographic evidence for acute cardiopulmonary process. Electronically signed by: Fransisco Pagan MD (09/24/2020 7:59 PM) MABEL
--- NOTE | 2020-09-24 20:38 | RAD ---
EXAM: ULTRASOUND PELVIS INDICATION: LLQ pain r/o torsion. Last menstrual period was June 2020. COMPARISON: None available. TECHNIQUE: Transabdominal sonography was performed. FINDINGS: The uterus measures 8.2 x 5.3 x 4.1 cm. The endometrium measures 0.8 cm. There is no focal myometria l abnormality The right ovary measures 3 x 1.9 x 2.7 cm. The left ovary measures 2.6 x 2.1 x 2.5 cm. No definite adnexal mass is seen. Flow seen to both ovaries. There is no free fluid. IMPRESSION: Normal sonographic survey of the uterus and adnexa. No evidence for ovarian torsion. Electronically signed by: Fransisco Pagan MD (09/24/2020 8:36 PM) MABEL
[2020-09-24 21:00] VITALS: BP 95/51
[2020-09-24] MEDS ORDERED: ONDA4TAB7 PO (21:06)
--- NOTE | 2020-09-27 16:16 | NUR ---
IP: Attempted to contact pt concerning COVID results. Number listed in file in disconnected.
== END 2020-09-24 21:25 | disposition home or self-care (01) ==
LOC: ER 17:47
DX: B34.9 Viral infection, unspecified (principal); Z20.822 Contact with and (suspected) exposure to COVID-19; R51.9 Headache, unspecified; R11.0 Nausea; R19.7 Diarrhea, unspecified; Z87.442 Personal history of urinary calculi; Z87.891 Personal history of nicotine dependence; Z90.89 Acquired absence of other organs; Z90.49 Acquired absence of other specified parts of digestive tract; Z98.890 Other specified postprocedural states; Z88.1 Allergy status to other antibiotic agents
CPT/HCPCS: 71045; 76856; 81001; 81025; 87804; 99285; C9803; U0003

== ENCOUNTER 2021-04-29 12:30 | Emergency (ER) | payer SELFPAY ==
[~2021-04-29] VITALS: Ht 157.5 cm; Wt 81.8 kg
[2021-04-29 14:58] LABS: BILIRUBIN,URINE NEGATIVE (NEG); CLARITY,URINE CLOUDY; COLOR,URINE YELLOW; NITRITE,URINE NEGATIVE (NEG); PH,URINE 5.5 (<5.0-8.0); PROTEIN,URINE NEGATIVE (NEG-TRACE); UROBILINOGEN,URINE 0.2 mg/dL (0.2 mg/dL)
[2021-04-29 15:12] LABS: BACTERIA,URINE MANY /HPF (0-FEW)
[2021-04-29 15:13] LABS: RBC,URINE 0 /HPF (0-2); WBC,URINE 20-40 /HPF (0-4)
[2021-04-29] MEDS ORDERED: IV NORMAL SALINE 1000ML BAG 1,000 ML IV ONE (15:45)
[2021-04-29] MEDS ORDERED: PROCHLORPERAZINE 10 MG/2 ML VIAL. IV ONE (15:45)
[2021-04-29 16:25] LABS: BASO # 0.1 x10^3/uL (0.0-0.2); BASO % 1 % (0-3); EOS # 0.1 x10^3/uL (0.0-0.7); EOS % 1 % (0-3); HEMATOCRIT 37.1 % (36.0-47.0); HEMOGLOBIN 13.2 g/dL (12.0-15.5); LYMPH # 1.9 x10^3/uL (1.0-4.8); LYMPH % 23 % (24-48); MEAN CORPUSCULAR HEMOGLOBIN 33 pg (25-35); MEAN CORPUSCULAR HGB CONC 36 g/dL (31-37); MEAN CORPUSCULAR VOLUME 93 fL (79-100); MONO # 0.5 x10^3/uL (0.0-1.1); MONO % 6 % (0-9); NEUT # 5.6 x10^3/uL (1.8-7.7); NEUT % 69 % (31-73); PLATELET COUNT 315 x10^3/uL (140-400); RED BLOOD COUNT 3.99 x10^6/uL (3.50-5.40); RED CELL DISTRIBUTION WIDTH 12.2 % (11.5-14.5); WHITE BLOOD COUNT 8.2 x10^3/uL (4.0-11.0)
[2021-04-29 16:31] LABS: CALCIUM 8.9 mg/dL (8.5-10.1); CREATININE 0.6 mg/dL (0.6-1.0); GFR 120.8; POTASSIUM 3.5 mmol/L (3.5-5.1)
[2021-04-29 16:38] LABS: ALBUMIN 3.3 g/dL (3.4-5.0); ALBUMIN/GLOBULIN RATIO 0.7 (1.0-1.7); TOTAL BILIRUBIN 0.3 mg/dL (0.2-1.0); TOTAL PROTEIN 7.8 g/dL (6.4-8.2)
--- NOTE | 2021-04-29 16:55 | PHYS DOC ---
Past Medical History Past Medical History: Kidney Stone Past Surgical History: Appendectomy, Cholecystectomy Additional Past Surgical Histo: D&C Smoking Status: Never Smoker Alcohol Use: Occasionally Drug Use: Cocaine General Adult EDM: Chief Complaint: SORE THROAT HPI: HPI: Patient is a 25 year old female who presents to the ED today complaining of sore throat, intermittent headaches, nausea, sore throat, right ear pain, and low back pain, symptoms have been going on intermittently for 1 week. Patient denies any fever, denies any diarrhea. Denies any abdominal pain or cramping. Reports her last menstrual cycle was in December 2020. She states she has irregular cycles and this is not unusual. Reports being a 2 para 2. Review of Systems: Review of Systems: Constitutional: Denies fever or chills. [] Eyes: Denies change in visual acuity. [] HENT: Reports right ear pain and sore throat. Respiratory: Denies cough or shortness of breath. [] Cardiovascular: Denies chest pain or edema. [] GI: Reports nausea. Denies abdominal pain, nausea, bloody stools or diarrhea. [] : Denies dysuria. [] Musculoskeletal: Reports low back pain Integument: Denies rash. [] Neurologic: Reports headache, denies focal weakness or sensory changes. [] Psychiatric: Denies depression or anxiety. [] Heart Score: C/O Chest Pain: N/A Risk Factors: Risk Factors: DM, Current or recent (<one month) smoker, HTN, HLP, family history of CAD, obesity. Risk Scores: Score 0 - 3: 2.5% MACE over next 6 weeks - Discharge Home Score 4 - 6: 20.3% MACE over next 6 weeks - Admit for Clinical Observation Score 7 - 10: 72.7% MACE over next 6 weeks - Early Invasive Strategies Current Medications: Current Medications Medications (Trade) Dose Ordered Sig/Kiersten Start Time Stop Time Status Last Admin Dose Admin Prochlorperazine Edisylate (Compazine) 10 mg 1X ONCE 04/29/21 15:45 04/29/21 15:46 DC 04/29/21 16:34 10 MG Sodium Chloride 1,000 ml @ 1,000 mls/hr 1X ONCE 04/29/21 15:45 04/29/21 16:44 04/29/21 16:34 1,000 MLS/HR Allergies: Allergies: Allergies Coded Allergies Type Severity Reaction Last Updated Verified vancomycin Allergy Severe Itching 07/12/18 Yes Physical Exam: PE: Constitutional: Well developed, well nourished, no acute distress, non-toxic appearance. [] HENT: Normocephalic, atraumatic, bilateral external ears normal, oropharynx moist, no oral exudates, nose normal. [] Eyes: PERRLA, EOMI, conjunctiva normal, no discharge. [] Neck: Normal range of motion, no tenderness, supple, no stridor. [] Cardiovascular:Heart rate regular rhythm, no murmur [] Lungs & Thorax: Bilateral breath sounds clear to auscultation [] Abdomen: Bowel sounds normal, soft, no tenderness, no masses, no pulsatile ma sses. [] Skin: Warm, dry, no erythema, no rash. [] Back: No tenderness, no CVA tenderness. [] Extremities: No tenderness, no cyanosis, no clubbing, ROM intact, no edema. [] Neurologic: Alert and oriented X 3, normal motor function, normal sensory function, no focal deficits noted. [] Psychologic: Affect normal, judgement normal, mood normal. [] Current Patient Data: Labs: Laboratory Tests Test 04/29/21 14:45 04/29/21 14:50 04/29/21 14:53 04/29/21 16:00 Urine Collection Type Unknown Urine Color Yellow Urine Clarity Cloudy Urine pH 5.5 (<5.0-8.0) Urine Specific [place] 1.020 (1.000-1.030) Urine Protein Negative mg/dL (NEG-TRACE) Urine Glucose (UA) Negative mg/dL (NEG) Urine Ketones (Stick) Negative mg/dL (NEG) Urine Blood Small (NEG) Urine Nitrite Negative (NEG) Urine Bilirubin Negative (NEG) Urine Urobilinogen Dipstick 0.2 mg/dL (0.2 mg/dL) Urine Leukocyte Esterase Small (NEG) Urine RBC 0 /HPF (0-2) Urine WBC 20-40 /HPF (0-4) Urine Squamous Epithelial Cells Many /LPF Urine Bacteria Many /HPF (0-FEW) Urine Mucus Marked /LPF SARS-CoV-2 Antigen (Rapid) Negative (NEGATIVE) POC Urine HCG, Qualitative Hcg positive (Negative) White Blood Count 8.2 x10^3/uL (4.0-11.0) Red Blood Count 3.99 x10^6/uL (3.50-5.40) Hemoglobin 13.2 g/dL (12.0-15.5) Hematocrit 37.1 % (36.0-47.0) Mean Corpuscular Volume 93 fL (79-100) Mean Corpuscular Hemoglobin 33 pg (25-35) Mean Corpuscular Hemoglobin Concent 36 g/dL (31-37) Red Cell Distribution Width 12.2 % (11.5-14.5) Platelet Count 315 x10^3/uL (140-400) Neutrophils (%) (Auto) 69 % (31-73) Lymphocytes (%) (Auto) 23 % (24-48) L Monocytes (%) (Auto) 6 % (0-9) Eosinophils (%) (Auto) 1 % (0-3) Basophils (%) (Auto) 1 % (0-3) Neutrophils # (Auto) 5.6 x10^3/uL (1.8-7.7) Lymphocytes # (Auto) 1.9 x10^3/uL (1.0-4.8) Monocytes # (Auto) 0.5 x10^3/uL (0.0-1.1) Eosinophils # (Auto) 0.1 x10^3/uL (0.0-0.7) Basophils # (Auto) 0.1 x10^3/uL (0.0-0.2) Sodium Level 135 mmol/L (136-145) L Potassium Level 3.5 mmol/L (3.5-5.1) Chloride Level 101 mmol/L (98-107) Carbon Dioxide Level 25 mmol/L (21-32) Anion Gap 9 (6-14) Blood Urea Nitrogen 6 mg/dL (7-20) L Creatinine 0.6 mg/dL (0.6-1.0) Estimated GFR (Cockcroft-Gault) 120.8 BUN/Creatinine Ratio 10 (6-20) Glucose Level 87 mg/dL (70-99) Calcium Level 8.9 mg/dL (8.5-10.1) Total Bilirubin 0.3 mg/dL (0.2-1.0) Aspartate Amino Transferase (AST) 11 U/L (15-37) L Alanine Aminotransferase (ALT) 23 U/L (14-59) Alkaline Phosphatase 53 U/L (46-116) Total Protein 7.8 g/dL (6.4-8.2) Albumin 3.3 g/dL (3.4-5.0) L Albumin/Globulin Ratio 0.7 (1.0-1.7) L Laboratory Tests 04/29/21 16:00 Laboratory Tests 04/29/21 16:00 Vital Signs: Vital Signs Date Time Temp Pulse Resp B/P (MAP) Pulse Ox O2 Delivery O2 Flow Rate FiO2 04/29/21 14:15 98.4 76 18 116/56 (66) 99 Room Air 98.4 EKG: EKG: [] Radiology/Procedures: Radiology/Procedures: []PROCEDURE: OB <14 WKS W/TV INDICATION: Reason: back pain / Spl. Instructions: / History: COMPARISON: None. TECHNIQUE: Grayscale and color ultrasound images of the pelvis. FINDINGS: Uterus: 125 x 83 x 49 mm. Intrauterine gestational sac is seen and unremarkable. Too early in gestation to adequately assess placenta. pole seen. CRL: 18 mm. Estimated Gestational Age: 8 weeks and 2 days Heart Beat: 160 Right Ovary: 30 x 25 x 19 mm. Left Ovary: 48 x 31 x 28 mm. Vascular flow identified to bilateral ovaries. 29 x 22 mm cyst at the left ovary. Within the uterus there is a hypoechoic region adjacent to the gestational sac measuring 43 x 32 x 27 mm with some internal vascularity. IMPRESSION: * Intrauterine is seen with positive heart beat. Estimated gestational age is 8 weeks and 2 days * Recommend routine anomaly screening at 18-22 weeks. * Small cyst at the left ovary. * There is a hypoechoic region within the myometrium adjacent to the gestational sac with mild hypervascularity. Differential considerations would include causes such as a fibroid within the region as well as some focal inflammation of the myometrium. This can be followed later in . Electronically signed by: Hari Diaz MD (04/29/2021 6:51 PM) [id number] DICTATED and SIGNED BY: HARI DIAZ MD DATE: 04/29/21 [id number] 0 Course & Med Decision Making: Course & Med Decision Making Pertinent Labs and Imaging studies reviewed. (See chart for details) This is a 25-year-old female patient presented to the ED today complaining of headache, sore throat, nausea, right ear pain, low back pain, symptoms intermittently for weeks. Negative rapid Covid test Positive urine hCG. LMP in December. UA with small amount of leukocytes, many bacteria, though contaminated with squamous cells epithelium-discharged with cephalexin. CBC CMP with no acute findings, Beta HCG [id number] This patient has not received any OB care, I ordered OB ultrasound, medicine techloraine Martinez was refusing to do the test arguing patient has no symptoms. Try to explain to her this patient has a low back pain, this is a symptom, patient also has no confirmed IUP. We need to confirm it with ultrasound. She continued to argue. Dr. Boss was notified and talked to her OB ultrasound noted for an IUP with heartbeat of 160, small left ovarian cyst and a hypoechoic region within the myometrium adjacent to the gestational sac with mild hypervascularity. Differential considerations would include causes such as a fibroid within the region as well as some focal inflammation of the myometrium. This can be followed later in . Patient was provided an CILNICAL SCIENTIST. Instructed to follow-up in the next 1 week. Provided return precautions and discharged in stable condition [place] Disclaimer: [place] Disclaimer: This electronic medical record was generated, in whole or in part, using a voice recognition dictation system. Departure Departure Impression: Primary Impression: UTI in Qualified Codes: O23.41 - Unspecified infection of urinary tract in , first trimester Additional Impressions: Qualified Codes: Z3A.08 - 8 weeks gestation of Ovarian cyst, left Person under investigation for COVID-19 Nausea and vomiting in Disposition: 01 HOME / SELF CARE / HOMELESS Condition: STABLE Referrals: NO PCP (PCP) DIMITRIOS HADLEY MD follow up in one week Patient Instructions: ABCs of , - Urinary Tract Infection Additional Instructions: You were evaluated in the emergency room and noted to be . You are 8 weeks 2 days. You have urinary tract infection. Please take the prescribed antibiotics until completed. You can take Tylenol as needed for pain. Please follow-up with your CILNICAL SCIENTIST or the provided CILNICAL SCIENTIST in the next 1 to 2 weeks. Come back to the ED at any point symptoms worsen. You need to quarantine yourself until we call you with PCR Covid results. Scripts Prochlorperazine Maleate (Compazine) 10 Mg Tablet 1 TAB PO Q6HRS PRN for NAUSEA, #30 TAB 0 Refills Prov: PRUDENCE LARA APRN 04/29/21 Cephalexin (CEPHALEXIN) 500 Mg Tablet 1 TAB PO BID, #14 TAB Prov: PRUDENCE LARA APRN 04/29/21 PRUDENCE LARA APRN Apr 29, 2021 16:55
--- NOTE | 2021-04-29 18:54 | RAD ---
INDICATION: Reason: back pain / Spl. Instructions: / History: COMPARISON: None. TECHNIQUE: Grayscale and color ultrasound images of the pelvis. FINDINGS: Uterus: 125 x 83 x 49 mm. Intrauterine gestational sac is seen and unremarkable. Too early in gestation to adequately assess p lacenta. pole seen. CRL: 18 mm. Estimated Gestational Age: 8 weeks and 2 days Heart Beat: 160 Right Ovary: 30 x 25 x 19 mm. Left Ovary: 48 x 31 x 28 mm. Vascular flow identified to bilateral ovaries. 29 x 22 mm cyst at the left ovary. Within the uterus there is a hypoechoic region adjacent to the gestational sac measuring 43 x 32 x 27 mm with some internal vascularity. IMPRESSION: * Intrauterine is seen with positive heart beat. Estimated gestational age is 8 weeks and 2 days * Recommend routine anomaly screening at 18-22 weeks. * Small cyst at the left ovary. * There is a hypoechoic region within the myometrium adjacent to the gestational sac with mild hyper vascularity. Differential considerations would include causes such as a fibroid within the region as well as some focal inflammation of the myometrium. This can be followed later in . Electronically signed by: Hari Almanzar MD (04/29/2021 6:51 PM) [id number]
[2021-04-29 18:58] VITALS: BP 97/62
[2021-04-29] MEDS ORDERED: CEPH500T PO (19:22)
[2021-04-29] MEDS ORDERED: PROC10TA57 PO (19:29)
--- NOTE | 2021-04-30 12:13 | NUR ---
IP: Attempted to contact pt concerning covid results. No answer, no voicemail.
--- NOTE | 2021-04-30 16:50 | NUR ---
IP: Attempted again to contact pt. Message now is phone is no longer in service.
== END 2021-04-29 19:30 | disposition home or self-care (01) ==
LOC: ER 12:30
DX: O23.41 Unspecified infection of urinary tract in pregnancy, first trimester (principal); O34.81 Maternal care for other abnormalities of pelvic organs, first trimester; N83.202 Unspecified ovarian cyst, left side; O21.9 Vomiting of pregnancy, unspecified; H92.01 Otalgia, right ear; M54.5 Low back pain; Z20.822 Contact with and (suspected) exposure to COVID-19; Z87.442 Personal history of urinary calculi; Z90.49 Acquired absence of other specified parts of digestive tract; Z90.89 Acquired absence of other organs; Z88.1 Allergy status to other antibiotic agents; Z3A.08 8 weeks gestation of pregnancy
CPT/HCPCS: 36415; 76801; 76817; 80053; 81001; 81025; 84702; 85025; 87086; 87426; 96361; 96374; 99285; J0780; J7030; U0003; U0005